=== PATIENT | male | born 1950 | race Caucasian/White ===

== ENCOUNTER 2017-02-06 19:48 | Inpatient (IN) | payer OTHER ==
[~2017-02-06] VITALS: Ht 170.2 cm; Wt 130.7 kg
[2017-02-06 20:30] LABS: BASOPHIL 0.1 % (0-2); EOSINOPHIL 0.1 % (0-7); HCT 45.5 % (42.0-52.0); HGB 14.1 g/dl (13.2-18.0); LYMPHOCYTE 5.6 % (15-48); MCH 29.2 pg (25.0-31.0); MCV 94.2 fL (78.0-100.0); MONOCYTE 5.5 % (0-12); NEUTROPHIL 88.7 % (41-80); PLT 363 K/uL (150-400); RBC 4.83 M/uL (4.70-6.00)
[2017-02-06 20:36] LABS: INR 1.3 (0.9-1.2); PROTHROMBIN TIME 15.7 SECONDS (11.7-14.0); PTT 34.2 SECONDS (23.2-31.4)
[2017-02-06 20:37] LABS: D-DIMER 1.22 ug/mLFEU (0.00-0.41)
[2017-02-06 20:40] LABS: ALBUMIN 3.2 g/dL (3.4-4.8); BILIRUBIN - TOTAL 1.2 mg/dL (0.1-1.0); GLOBULIN (CALCULATION) 3.6 g/dL (2.2-4.2); TOTAL PROTEIN 6.8 g/dL (6.4-8.3)
[2017-02-06 20:41] LABS: TROPONIN T < 0.010 ng/mL
[2017-02-06 20:48] LABS: PRO-BNP 2830 pg/mL (0-125)
[2017-02-06 21:13] LABS: BILIRUBIN NEGATIVE (NEGATIVE); BLOOD 2+ Ery/uL (NEGATIVE); CLARITY HAZY (CLEAR); COLOR ORANGE (YELLOW); GLUCOSE (U) NORMAL (NORMAL); KETONE (U) NEGATIVE (NEGATIVE); LEUKOCYTES NEGATIVE Leu/uL (NEGATIVE); NITRITE NEGATIVE (NEGATIVE); PROTEIN 2+ mg/dL (NEGATIVE); SPECIFIC GRAVITY >=1.030 (1.001-1.030)
[2017-02-06 21:19] LABS: BACTERIA 1+; SQUAMOUS EPITHELIAL CELLS RARE
[2017-02-06 21:29] LABS: LACTIC ACID 5.4 mmol/L (0.5-2.2)
--- NOTE | 2017-02-07 06:40 | NUR ---
AT BEDSIDE DRAWING BLOOD FROM R/SC CENTRAL LINE - PT PULLED A 3CM LOOP CENTRAL LINE FROM INSERT SITE. XRAY ORDERED IMMEDIATETLY. COVERED W/TEGADERM USING STERILE TECHNIQUE. REPORT TO CHRISTIE CASTRO W/UNDERSTANDING VERBALIZED.
--- NOTE | 2017-02-07 06:40 | NUR ---
AT BEDSIDE DRAWING BLOOD FROM R/SC CENTRAL LINE: PT PULLED A 3CM LOOP OF THE CENTRAL LINE FROM THE INSERTION SITE. XRAY ORDERED IMMEDIATELY. COVERED W/ TEGADERM USING STERILE TECHNIQUE. REPORT TO CHRISTIE CASTRO W/UNDERSTANDING VERBALIZED.
[2017-02-07 07:23] LABS: CKMB 1.66 ng/mL (0.97-4.94); TROPONIN T < 0.010 ng/mL
[2017-02-07 07:33] LABS: POTASSIUM 4.2 mmol/L (3.5-5.1)
[2017-02-07 12:16] LABS: CKMB 1.58 ng/mL (0.97-4.94); TROPONIN T < 0.010 ng/mL
[2017-02-08 04:15] LABS: BASOPHIL 0.1 % (0-2); EOSINOPHIL 0.9 % (0-7); HGB 13.1 g/dl (13.2-18.0); LYMPHOCYTE 9.6 % (15-48); MCHC 30.5 g/dL (32.0-36.0); MCV 95.3 fL (78.0-100.0); MONOCYTE 9.6 % (0-12); MPV 8.7 fL (6.0-9.5); NEUTROPHIL 79.8 % (41-80); PLT 323 K/uL (150-400); RBC 4.51 M/uL (4.70-6.00); WBC 12.1 K/uL (4.0-10.5)
[2017-02-08 04:37] LABS: ALBUMIN 3.1 g/dL (3.4-4.8); CREATININE 1.1 mg/dL (0.7-1.2); GLOBULIN (CALCULATION) 3.6 g/dL (2.2-4.2); MAGNESIUM 2.2 mg/dL (1.40-2.10); POTASSIUM 3.8 mmol/L (3.5-5.1); TOTAL PROTEIN 6.7 g/dL (6.4-8.3)
[2017-02-09 04:00] LABS: HCT 41.8 % (42.0-52.0); HGB 12.6 g/dl (13.2-18.0); MCHC 30.1 g/dL (32.0-36.0); MCV 96.3 fL (78.0-100.0); MPV 8.9 fL (6.0-9.5); RBC 4.34 M/uL (4.70-6.00); RDW 16.8 % (11.5-14.0); WBC 10.2 K/uL (4.0-10.5)
[2017-02-09 04:04] LABS: INR 1.3 (0.9-1.2); PROTHROMBIN TIME 15.7 SECONDS (11.7-14.0)
[2017-02-09 04:09] LABS: CREATININE 1.1 mg/dL (0.7-1.2); MAGNESIUM 2.13 mg/dL (1.40-2.10)
[2017-02-09] MEDS ORDERED: LASIX80 MG PO (12:04)
[2017-02-09] MEDS ORDERED: ALDACTONE25 MG PO (12:04)
[2017-02-09] MEDS ORDERED: POTASSIUM CHLO10 ME1 PO (12:05)
[2017-02-09] MEDS ORDERED: ZESTRIL5 MG PO (12:05)
[2017-02-09] MEDS ORDERED: DIGITEK250 MCG PO (12:05)
[2017-02-09] MEDS ORDERED: LIPITOR40 MG PO (12:06)
[2017-02-09] MEDS ORDERED: XARELTO20 MG PO (12:10)
== END 2017-02-09 14:25 | disposition home health service (06) | DRG 871 ==
LOC: FER 19:48 → FICU 02-07 02:20
PROVIDERS: Emergency Medicine; Internal Medicine Cardiovascular Disease; Internal Medicine Nephrology; ADMIT Internal Medicine
PROC: 02HV33Z Insertion of Infusion Device into Superior Vena Cava, Percutaneous Approach (ICD-10-PCS; principal; 2017-02-06)
DX: A41.9 Sepsis, unspecified organism (principal); J96.01 Acute respiratory failure with hypoxia; I50.43 Acute on chronic combined systolic (congestive) and diastolic (congestive) heart failure; I27.81 Cor pulmonale (chronic); E66.2 Morbid (severe) obesity with alveolar hypoventilation; Z68.42 Body mass index [BMI] 45.0-49.9, adult; L03.116 Cellulitis of left lower limb; L97.929 Non-pressure chronic ulcer of unspecified part of left lower leg with unspecified severity; L97.919 Non-pressure chronic ulcer of unspecified part of right lower leg with unspecified severity; R65.20 Severe sepsis without septic shock; I11.0 Hypertensive heart disease with heart failure; I48.91 Unspecified atrial fibrillation; I87.2 Venous insufficiency (chronic) (peripheral); I25.10 Atherosclerotic heart disease of native coronary artery without angina pectoris; F09 Unspecified mental disorder due to known physiological condition; E78.5 Hyperlipidemia, unspecified; Z87.891 Personal history of nicotine dependence; Z80.9 Family history of malignant neoplasm, unspecified; Z79.01 Long term (current) use of anticoagulants; Z79.899 Other long term (current) drug therapy; Z91.14 Patient's other noncompliance with medication regimen
CPT/HCPCS: 36415; 36600; 71010; 71275; 80048; 80053; 80162; 80202; 81001; 82550; 82553; 82803; 83605; 83735; 83880; 84145; 84443; 84484; 85025; 85379; 85610; 85730; 87040; 87070; 87077; 87088; 87186; 87205; 87804; 87899; 93005; 94760; 96374; 97116; 97161; 97165; 97535; J1160; J1940; J1956; J2543; J3370; Q9967

== ENCOUNTER 2021-02-03 16:33 | Inpatient (IN) | payer OTHER ==
[~2021-02-03] VITALS: Ht 170.2 cm; Wt 110.8 kg
[~2021-02-03 16:33] MED LIST: ALDACTONE25 MG PO; DIGITEK250 MCG PO; K-DUR20 MEQ PO; LASIX40 MG PO; LASIX80 MG PO; LIPITOR40 MG PO; MAG-OXIDE 400M400 MG PO; METFORMIN HCL500 MG PO; METOPROLOL SUC100 MG PO; METOPROLOL TAR100 MG PO; NEURONTIN300 MG PO; POTASSIUM CHLO10 ME1 PO; PREDNISONE 10MG10 MG PO; TOPROL XL 25MG25 MG PO; VITAMIN D50000 UNIT PO; XARELTO20 MG PO; ZAROXOLYN2.5 MG PO; ZESTRIL5 MG PO; ZOLOFT100 MG PO
[2021-02-03 19:36] LABS: BASOPHIL 0.2 % (0-2); EOSINOPHIL 0.3 % (0-7); HCT 46.6 % (42.0-52.0); HGB 14.6 g/dl (13.2-18.0); LYMPHOCYTE 6.4 % (15-48); MCH 30.9 pg (25.0-31.0); MCHC 31.3 g/dL (32.0-36.0); MCV 98.5 fL (78.0-100.0); MONOCYTE 7.7 % (0-12); MPV 9.2 fL (6.0-9.5); NEUTROPHIL 84.8 % (41-80); NRBC 0; PLT 253 K/uL (150-400); RBC 4.73 M/uL (4.70-6.00); RDW 20.9 % (11.5-14.0); WBC 12.5 K/uL (4.0-10.5)
[2021-02-03 19:48] LABS: ALBUMIN 2.4 g/dL (3.4-5.0); BILIRUBIN - TOTAL 1.4 mg/dL (0.2-1.0); BUN/CREAT RATIO (CALC) 22.1 RATIO; CREATININE 1.81 mg/dL (0.67-1.17); GLOBULIN (CALCULATION) 4.8 g/dL; POTASSIUM 2.7 mmol/L (3.5-5.1); TOTAL PROTEIN 7.2 g/dL (6.4-8.2)
[2021-02-04 02:02] LABS: BILIRUBIN NEGATIVE (NEGATIVE); BLOOD TRACE-LYSED Ery/uL (NEGATIVE); CLARITY CLEAR (CLEAR); COLOR YELLOW (YELLOW); GLUCOSE (U) NORMAL (NORMAL); LEUKOCYTES NEGATIVE Leu/uL (NEGATIVE); NITRITE NEGATIVE (NEGATIVE); PROTEIN NEGATIVE (NEGATIVE); SPECIFIC GRAVITY 1.015 (1.001-1.030); UROBILINOGEN 0.2 mg/dL (0.2-1.0)
[2021-02-04 02:10] LABS: URINARY RBC RARE
[2021-02-04 08:01] LABS: CORONAVIRUS 2019 SARS-COV-2 NEGATIVE (NEGATIVE); INFLUENZA A NAA NEGATIVE (NEGATIVE)
--- NOTE | 2021-02-04 09:22 | NUR ---
INCOMPLETE ADMISSTION DATABASE DUE TO PATIENT COGNITIVE IMPAIRMENTS AND MEMORY LOSS, PATIENT UNABLE TO ACCURATELY ANSWER ALL QUESTIONS. IT APPEARS PATIENT MAY HAVE SOME HOME HEALTH DUE TO COBAN WRAPS TO BLE. PATIENT STATES A NURSE COMES TO HIS HOME 3X WEEKLY BUT DOES NOT KNOW NAME OF HOME HEALTH. PATIENT DOES NOT KNOW MEDICATIONS. STATES HE LIVES WITH BROTHERS AND SISTERS ALTHOUGH REPORT FROM ER IS THAT PATIENT LIVES ALONE. THIS RN WILL ATTEMPT TO CALL PCP AND DETERMINE PATIENT MEDICATIONS AND CALL PHARMACY IF ABLE TO OBTAIN INFORMATION
--- NOTE | 2021-02-04 09:45 | NUR ---
THIS RN SPOKE WITH SHA AT [facility] WHO VERIFIED PATIENT IS CURRENT WITH THEIR HOME HEALTH SERVICE. ALSO INFORMED THAT PATIENT'S PCP IS DR MICHELLE FOSTER WITH [facility] CALLS AT [phone]. THIS RN REQUESTED PATIENT'S [facility] HOME HEALTH NURSE CALL TO DISCUSS PATIENT BASELINE FUNCTION, MEDICATIONS, SOCIAL HISTORY, ETC. RN ALSO PLACED CALL TO [facility] CALL[facility] TO REQUEST HISTORY AND PHYSICAL AND MEDICATION LIST. LEFT VOICEMAIL WITH MEDICAL RECORDS FOR INFORMATION TO BE FAXED
--- NOTE | 2021-02-04 10:40 | NUR ---
PATIENT'S SISTER CALLED, INFORMED RN THAT PATIENT DOES LIVE ALONE, HIS BROTHER HOMA HAS . SISTER IS TO BRING PATIENT'S MEDICATION BOTTLES FROM HOME SO RN CAN VERIFY HOME MEDICATIONS
[2021-02-04] MEDS ORDERED: LASIX40 MG PO ×2 (11:20→11:43)
[2021-02-04] MEDS ORDERED: MAG-OXIDE 400M400 MG PO ×2 (11:20→11:44)
[2021-02-04] MEDS ORDERED: K-DUR20 MEQ PO ×2 (11:21→11:41)
[2021-02-04] MEDS ORDERED: METOLAZONE 5MG T5 M1 PO ×2 (11:21→11:44)
[2021-02-04] MEDS ORDERED: LOPRESSOR50 MG PO (11:23)
[2021-02-04] MEDS ORDERED: NEURONTIN300 MG PO (11:40)
[2021-02-04] MEDS ORDERED: LIPITOR80 MG PO (11:42)
[2021-02-04] MEDS ORDERED: ZOLOFT100 MG PO (11:42)
[2021-02-04] MEDS ORDERED: METFORMIN HCL500 MG PO (11:42)
[2021-02-04] MEDS ORDERED: XARELTO20 MG PO (11:44)
[2021-02-04] MEDS ORDERED: LOPRESSOR100 MG PO (11:45)
--- NOTE | 2021-02-04 15:05 | NUR ---
02/04/21 Mr. Patricia lives alone, He has a quad cane, 3in1, and s. chair. His rolling walker broke causing a fall. He receives MOMs meals and homemaking from [facility]. [facility] is current and pt chose to continue services. [facility] was notified via [employer]. - Mr. Patricia becomes overwhelmed with too much information. Consequently, [facility] was requested to include a social worker aide to discuss service from [facility]. - A referral was made to [facility] for a rw. DC is anticipated for 02/[address] Mathew.
[2021-02-05 06:13] LABS: BASOPHIL 0.1 % (0-2); EOSINOPHIL 0.5 % (0-7); HCT 44.3 % (42.0-52.0); HGB 14.1 g/dl (13.2-18.0); LYMPHOCYTE 8.6 % (15-48); MCH 31.2 pg (25.0-31.0); MCHC 31.8 g/dL (32.0-36.0); MONOCYTE 7.3 % (0-12); MPV 8.5 fL (6.0-9.5); NEUTROPHIL 83.1 % (41-80); NRBC 0; PLT 241 K/uL (150-400); RBC 4.52 M/uL (4.70-6.00); RDW 20.5 % (11.5-14.0); WBC 12.9 K/uL (4.0-10.5)
[2021-02-05 06:32] LABS: BUN/CREAT RATIO (CALC) 25.2 RATIO; CREATININE 1.43 mg/dL (0.67-1.17); MAGNESIUM 1.9 mg/dL (1.8-2.4); POTASSIUM 2.5 mmol/L (3.5-5.1)
--- NOTE | 2021-02-05 15:24 | NUR ---
02/05/21 RW has been delivered to patient's room. - [facility] recommends for patient to consider SNF; patient declined.
--- NOTE | 2021-02-05 18:37 | NUR ---
TELEPHONE CALL RECEIVED FROM PATIENT'S CAREGIVER, CHRIS REQUESTING STAFF CALL HER UPON PATIENT DISCHARGE AND SHE WILL BE TRANSPORTING PATIENT HOME. CHRIS'S NUMBER IS [phone]
[2021-02-06 06:38] LABS: CREATININE 1.52 mg/dL (0.67-1.17); POTASSIUM 3.9 mmol/L (3.5-5.1)
--- NOTE | 2021-02-06 09:58 | NUR ---
02/06 [facility] was notified of discharge for today. A referral was made to [facility] for 02. The imporatance of using 02 at home was reiterated to Mr. Patricia. - Report given to MS CHRISTIE Johnson.
[2021-02-06] MEDS ORDERED: AZITHROMYCIN250 MG PO (13:24)
--- NOTE | 2021-02-10 08:34 | NUR ---
Patient's neighbor is Lashawn Stubbs, .
== END 2021-02-06 15:08 | disposition home health service (06) | DRG 291 ==
LOC: FER 16:33 → FMS 02-04 06:15
PROVIDERS: Emergency Medicine; Internal Medicine; ADMIT Internal Medicine
DX: I13.0 Hypertensive heart and chronic kidney disease with heart failure and stage 1 through stage 4 chronic kidney disease, or unspecified chronic kidney disease (principal); I50.33 Acute on chronic diastolic (congestive) heart failure; J18.9 Pneumonia, unspecified organism; S22.49XA Multiple fractures of ribs, unspecified side, initial encounter for closed fracture; S22.21XA Fracture of manubrium, initial encounter for closed fracture; I48.20 Chronic atrial fibrillation, unspecified; J44.0 Chronic obstructive pulmonary disease with (acute) lower respiratory infection; N18.30 Chronic kidney disease, stage 3 unspecified; G47.33 Obstructive sleep apnea (adult) (pediatric); Z20.822 Contact with and (suspected) exposure to COVID-19; I27.20 Pulmonary hypertension, unspecified; E11.22 Type 2 diabetes mellitus with diabetic chronic kidney disease; I69.398 Other sequelae of cerebral infarction; H54.7 Unspecified visual loss; E66.01 Morbid (severe) obesity due to excess calories; E78.00 Pure hypercholesterolemia, unspecified; F41.9 Anxiety disorder, unspecified; E87.6 Hypokalemia; S01.81XA Laceration without foreign body of other part of head, initial encounter; W19.XXXA Unspecified fall, initial encounter; I87.8 Other specified disorders of veins; Z87.891 Personal history of nicotine dependence; Z79.84 Long term (current) use of oral hypoglycemic drugs; Z79.01 Long term (current) use of anticoagulants; Z79.899 Other long term (current) drug therapy
CPT/HCPCS: 36415; 36600; 70450; 71045; 71250; 72125; 80048; 80053; 81001; 82803; 83605; 83735; 83880; 84484; 85025; 87040; 90471; 90714; 93005; 94640; 94664; 97116; 97162; 97166; 97530; 97530-GP; J0696; J2543; J2930; J7030; U0002

== ENCOUNTER 2021-02-07 17:38 | Day surgery (SDCO) | payer OTHER ==
[~2021-02-07 17:38] MED LIST changes: +AZITHROMYCIN250 MG PO; +LIPITOR80 MG PO; +LOPRESSOR100 MG PO; +LOPRESSOR50 MG PO; +METOLAZONE 5MG T5 M1 PO
[2021-02-07 18:17] LABS: BASOPHIL 0.4 % (0-2); EOSINOPHIL 1.3 % (0-7); HCT 48.3 % (42.0-52.0); HGB 15.2 g/dl (13.2-18.0); LYMPHOCYTE 15.3 % (15-48); MCHC 31.5 g/dL (32.0-36.0); MCV 98.4 fL (78.0-100.0); MONOCYTE 7.1 % (0-12); MPV 8.6 fL (6.0-9.5); NRBC 0; PLT 253 K/uL (150-400); RBC 4.91 M/uL (4.70-6.00); RDW 20.4 % (11.5-14.0); WBC 13.7 K/uL (4.0-10.5)
[2021-02-07 18:22] LABS: INR 2.31 (0.9-1.2); PROTHROMBIN TIME 24.2 SECONDS (11.4-13.6); PTT 45.3 SECONDS (22.2-34.7)
[2021-02-07 18:48] LABS: LACTIC ACID 2.9 mmol/L (0.4-1.9)
[2021-02-07 18:58] LABS: ALBUMIN 2.7 g/dL (3.4-5.0); BILIRUBIN - TOTAL 1.3 mg/dL (0.2-1.0); BUN/CREAT RATIO (CALC) 20.9 RATIO; CREATININE 1.91 mg/dL (0.67-1.17); GLOBULIN (CALCULATION) 5.1 g/dL; POTASSIUM 3.2 mmol/L (3.5-5.1); TOTAL PROTEIN 7.8 g/dL (6.4-8.2)
[2021-02-07 18:59] LABS: CKMB 0.6 ng/mL (0.0-3.6)
[2021-02-07 19:04] LABS: BILIRUBIN NEGATIVE (NEGATIVE); BLOOD TRACE-INTACT Ery/uL (NEGATIVE); CLARITY CLEAR (CLEAR); COLOR YELLOW (YELLOW); GLUCOSE (U) NORMAL (NORMAL); LEUKOCYTES NEGATIVE Leu/uL (NEGATIVE); NITRITE NEGATIVE (NEGATIVE); PROTEIN NEGATIVE (NEGATIVE); SPECIFIC GRAVITY <=1.005 (1.001-1.030); UROBILINOGEN 0.2 mg/dL (0.2-1.0); pH 6.5 (5.0-9.0)
[2021-02-07 19:17] LABS: URINARY RBC RARE
[2021-02-08 03:48] LABS: BASOPHIL 0.3 % (0-2); EOSINOPHIL 1.4 % (0-7); HCT 41.3 % (42.0-52.0); HGB 13.2 g/dl (13.2-18.0); LYMPHOCYTE 10.2 % (15-48); MCH 31.3 pg (25.0-31.0); MCV 97.9 fL (78.0-100.0); MONOCYTE 6.9 % (0-12); MPV 8.8 fL (6.0-9.5); NEUTROPHIL 80.5 % (41-80); NRBC 0; PLT 209 K/uL (150-400); RBC 4.22 M/uL (4.70-6.00); RDW 19.9 % (11.5-14.0); WBC 12.4 K/uL (4.0-10.5)
[2021-02-08 04:07] LABS: BUN/CREAT RATIO (CALC) 23.6 RATIO; CREATININE 1.57 mg/dL (0.67-1.17); POTASSIUM 3.1 mmol/L (3.5-5.1)
--- NOTE | 2021-02-08 11:01 | NUR ---
PT SENT HOME WITH [facility] AND HAS HOME O2. AND ROLLING WALKER; SPOKE TO CHRIS CAREGIVER AND SHE CONFIRMED HE LIVES ALONE AND SHE FEELS HE NEEDS REHAB. I DID SPEAK TO HIM AND HE REFUSES AT THIS TIME AND HE WANTS HOME WITH HOME HEALTH
[2021-02-09 03:57] LABS: BASOPHIL 0.5 % (0-2); EOSINOPHIL 2.3 % (0-7); HCT 42.3 % (42.0-52.0); HGB 13.5 g/dl (13.2-18.0); LYMPHOCYTE 17.7 % (15-48); MCH 31.3 pg (25.0-31.0); MCHC 31.9 g/dL (32.0-36.0); MCV 98.1 fL (78.0-100.0); MONOCYTE 7.4 % (0-12); MPV 8.9 fL (6.0-9.5); NEUTROPHIL 71.5 % (41-80); NRBC 0; PLT 233 K/uL (150-400); RBC 4.31 M/uL (4.70-6.00); RDW 20.1 % (11.5-14.0); WBC 11.9 K/uL (4.0-10.5)
[2021-02-09 04:21] LABS: BUN/CREAT RATIO (CALC) 24.4 RATIO; CREATININE 1.31 mg/dL (0.67-1.17); POTASSIUM 2.9 mmol/L (3.5-5.1)
[2021-02-09] MEDS ORDERED: SANTYL15 GM TOP (15:50)
--- NOTE | 2021-02-09 17:27 | NUR ---
TRIED TO CALL PATIENT'S FAMILY AND CAREGIVER TO AEROSPACE STRESS ENGINEER PATIENT. LEFT MESSAGES. ASKED PATIENT IF THERE WAS ANYONE ELSE THAT COULD COME PICK HIM UP, HE GAVE ME A LIST OF PEOPLE. CHRIS THE CAREGIVER CALLED BACK AND SAID THAT SHE WAS WAITING ON HIS SISTER TO COME HOME AND THAT SHE WOULD BE HOME LATER AND THAT SHE WOULD CALL ME BACK TO LET ME KNOW WHEN THEY WOULD BE HERE. I STILL HAVE NOT HEARD FROM ANY FAMILY
--- NOTE | 2021-02-10 10:19 | NUR ---
PATIENT WAS DISCHARGED HOME BEFORE HE COULD BE SEEN BY WOUND CARE.
== END 2021-02-09 18:40 | disposition home health service (06) ==
LOC: FER 17:38 → FTCU 22:07 → FMS 02-08 09:38
PROVIDERS: Emergency Medicine; Internal Medicine; Nurse Practitioner; ADMIT Internal Medicine
DX: E11.22 Type 2 diabetes mellitus with diabetic chronic kidney disease (principal); I13.0 Hypertensive heart and chronic kidney disease with heart failure and stage 1 through stage 4 chronic kidney disease, or unspecified chronic kidney disease; N18.9 Chronic kidney disease, unspecified; I50.30 Unspecified diastolic (congestive) heart failure; E78.5 Hyperlipidemia, unspecified; I48.20 Chronic atrial fibrillation, unspecified; J44.9 Chronic obstructive pulmonary disease, unspecified; G47.33 Obstructive sleep apnea (adult) (pediatric); E66.01 Morbid (severe) obesity due to excess calories; I87.8 Other specified disorders of veins; Z82.49 Family history of ischemic heart disease and other diseases of the circulatory system; Z79.84 Long term (current) use of oral hypoglycemic drugs; Z83.3 Family history of diabetes mellitus; Z79.899 Other long term (current) drug therapy
CPT/HCPCS: 36415; 36600; 70450; 71045; 80048; 80053; 81001; 82553; 82803; 82962; 83036; 83605; 83880; 84145; 84484; 85025; 85610; 85730; 87040; 93005; 96365; 96375; 97167; 97530; G0378; J1940; J3370; J7030; J7050

== ENCOUNTER 2021-02-27 17:24 | Day surgery (SDCO) | payer OTHER ==
[~2021-02-27] VITALS: Ht 170.2 cm; Wt 106.3 kg
[~2021-02-27 17:24] MED LIST changes: +SANTYL15 GM TOP
[2021-02-27 18:38] LABS: BASOPHIL 0.4 % (0-2); EOSINOPHIL 1.4 % (0-7); HCT 44.2 % (42.0-52.0); HGB 14.5 g/dl (13.2-18.0); LYMPHOCYTE 22.4 % (15-48); MCH 31.9 pg (25.0-31.0); MCHC 32.8 g/dL (32.0-36.0); MCV 97.4 fL (78.0-100.0); MONOCYTE 9.4 % (0-12); MPV 8.9 fL (6.0-9.5); NRBC 0; PLT 269 K/uL (150-400); RBC 4.54 M/uL (4.70-6.00); RDW 19.7 % (11.5-14.0)
[2021-02-27 18:51] LABS: INR 1.47 (0.9-1.2); PROTHROMBIN TIME 16.9 SECONDS (11.4-13.6); PTT 34.8 SECONDS (22.2-34.7)
[2021-02-27 18:56] LABS: ALBUMIN 2.6 g/dL (3.4-5.0); BILIRUBIN - TOTAL 0.9 mg/dL (0.2-1.0); BUN/CREAT RATIO (CALC) 17.7 RATIO; CREATININE 1.86 mg/dL (0.67-1.17); GLOBULIN (CALCULATION) 5.3 g/dL; TOTAL PROTEIN 7.9 g/dL (6.4-8.2)
[2021-02-27 19:14] LABS: CKMB <0.5 ng/mL (0.0-3.6); PRO-BNP 10141 pg/mL (<125)
[2021-02-27 19:15] LABS: LACTIC ACID 2.4 mmol/L (0.4-1.9)
[2021-02-27 20:10] LABS: BILIRUBIN NEGATIVE (NEGATIVE); BLOOD NEGATIVE Ery/uL (NEGATIVE); CLARITY CLEAR (CLEAR); COLOR YELLOW (YELLOW); GLUCOSE (U) NORMAL (NORMAL); LEUKOCYTES TRACE Leu/uL (NEGATIVE); NITRITE NEGATIVE (NEGATIVE); PROTEIN NEGATIVE (NEGATIVE); UROBILINOGEN 0.2 mg/dL (0.2-1.0)
[2021-02-27 20:14] LABS: BACTERIA TRACE; URINARY RBC RARE; URINARY WBC RARE
[2021-02-27 21:56] LABS: MAGNESIUM 1.8 mg/dL (1.8-2.4); PHOSPHORUS 3.3 mg/dL (2.6-4.7)
[2021-02-28] MEDS ORDERED: SERTRALINE HCL100 MG PO (00:29)
[2021-02-28] MEDS ORDERED: METFORMIN HCL500 MG PO (00:29)
[2021-02-28] MEDS ORDERED: LASIX40 MG PO (00:30)
[2021-02-28] MEDS ORDERED: MAG-OXIDE 400M400 MG PO (00:30)
[2021-02-28] MEDS ORDERED: LIPITOR40 MG PO (00:31)
[2021-02-28] MEDS ORDERED: XARELTO10 MG PO (00:31)
[2021-02-28] MEDS ORDERED: NEURONTIN300 MG PO (00:32)
[2021-02-28] MEDS ORDERED: LOPRESSOR50 MG PO (00:32)
[2021-02-28] MEDS ORDERED: K-DUR20 MEQ PO (00:33)
[2021-02-28 06:56] LABS: BASOPHIL 0.4 % (0-2); HCT 42.8 % (42.0-52.0); HGB 13.7 g/dl (13.2-18.0); LYMPHOCYTE 16.9 % (15-48); MCH 31.8 pg (25.0-31.0); MCV 99.3 fL (78.0-100.0); MONOCYTE 9.5 % (0-12); MPV 9.1 fL (6.0-9.5); NEUTROPHIL 70.8 % (41-80); NRBC 0; PLT 203 K/uL (150-400); RBC 4.31 M/uL (4.70-6.00); RDW 19.6 % (11.5-14.0); WBC 7.1 K/uL (4.0-10.5)
[2021-02-28 07:31] LABS: ALBUMIN 2.3 g/dL (3.4-5.0); BILIRUBIN - TOTAL 0.9 mg/dL (0.2-1.0); BUN/CREAT RATIO (CALC) 17.6 RATIO; CREATININE 1.65 mg/dL (0.67-1.17); GLOBULIN (CALCULATION) 3.9 g/dL; POTASSIUM 3.1 mmol/L (3.5-5.1); TOTAL PROTEIN 6.2 g/dL (6.4-8.2)
[2021-03-01 05:59] LABS: BASOPHIL 0.4 % (0-2); EOSINOPHIL 2.7 % (0-7); HCT 44.8 % (42.0-52.0); HGB 14.4 g/dl (13.2-18.0); LYMPHOCYTE 19.4 % (15-48); MCH 31.9 pg (25.0-31.0); MCHC 32.1 g/dL (32.0-36.0); MCV 99.3 fL (78.0-100.0); MONOCYTE 8.3 % (0-12); MPV 8.8 fL (6.0-9.5); NEUTROPHIL 68.8 % (41-80); NRBC 0; PLT 204 K/uL (150-400); RBC 4.51 M/uL (4.70-6.00); RDW 19.7 % (11.5-14.0); WBC 7.7 K/uL (4.0-10.5)
[2021-03-01 06:26] LABS: BUN/CREAT RATIO (CALC) 16.2 RATIO; CREATININE 1.48 mg/dL (0.67-1.17); MAGNESIUM 1.6 mg/dL (1.8-2.4); POTASSIUM 2.8 mmol/L (3.5-5.1)
[2021-03-01 06:40] LABS: PRO-BNP 8519 pg/mL (<125)
[2021-03-02 04:20] LABS: BASOPHIL 0.4 % (0-2); EOSINOPHIL 3.3 % (0-7); HCT 43.9 % (42.0-52.0); HGB 14.2 g/dl (13.2-18.0); MCH 32.1 pg (25.0-31.0); MCHC 32.3 g/dL (32.0-36.0); MCV 99.3 fL (78.0-100.0); MONOCYTE 9.3 % (0-12); MPV 8.8 fL (6.0-9.5); NEUTROPHIL 67.7 % (41-80); NRBC 0; PLT 199 K/uL (150-400); RBC 4.42 M/uL (4.70-6.00); RDW 19.9 % (11.5-14.0); WBC 7.3 K/uL (4.0-10.5)
[2021-03-02 04:41] LABS: BUN/CREAT RATIO (CALC) 15.1 RATIO; CREATININE 1.66 mg/dL (0.67-1.17); POTASSIUM 3.2 mmol/L (3.5-5.1)
[2021-03-02 04:44] LABS: MAGNESIUM 2.2 mg/dL (1.8-2.4)
[2021-03-03 06:20] LABS: BASOPHIL 0.3 % (0-2); EOSINOPHIL 3.1 % (0-7); HGB 14.8 g/dl (13.2-18.0); LYMPHOCYTE 22.9 % (15-48); MCH 31.8 pg (25.0-31.0); MCHC 32.2 g/dL (32.0-36.0); MCV 98.7 fL (78.0-100.0); MPV 8.5 fL (6.0-9.5); NEUTROPHIL 63.4 % (41-80); NRBC 0; PLT 173 K/uL (150-400); RBC 4.66 M/uL (4.70-6.00); RDW 19.7 % (11.5-14.0); WBC 6.4 K/uL (4.0-10.5)
[2021-03-03 06:39] LABS: BUN/CREAT RATIO (CALC) 14.8 RATIO; CREATININE 1.76 mg/dL (0.67-1.17); MAGNESIUM 1.7 mg/dL (1.8-2.4); POTASSIUM 3.1 mmol/L (3.5-5.1)
[2021-03-03 06:41] LABS: PRO-BNP 4457 pg/mL (<125)
[2021-03-03] MEDS ORDERED: BUMEX1 MG PO (11:42)
[2021-03-03] MEDS ORDERED: NEURONTIN300 MG PO (13:54)
== END 2021-03-03 16:13 ==
LOC: FER 17:24 → FMS 22:22
PROVIDERS: Emergency Medicine; Nurse Practitioner; ADMIT Internal Medicine
DX: I13.0 Hypertensive heart and chronic kidney disease with heart failure and stage 1 through stage 4 chronic kidney disease, or unspecified chronic kidney disease (principal); E11.22 Type 2 diabetes mellitus with diabetic chronic kidney disease; N18.30 Chronic kidney disease, stage 3 unspecified; I50.33 Acute on chronic diastolic (congestive) heart failure; N17.9 Acute kidney failure, unspecified; I95.9 Hypotension, unspecified; I48.20 Chronic atrial fibrillation, unspecified; Z20.822 Contact with and (suspected) exposure to COVID-19; K62.89 Other specified diseases of anus and rectum; E86.0 Dehydration; E87.1 Hypo-osmolality and hyponatremia; E87.6 Hypokalemia; E83.42 Hypomagnesemia; R77.8 Other specified abnormalities of plasma proteins; E78.5 Hyperlipidemia, unspecified; I35.8 Other nonrheumatic aortic valve disorders; I07.1 Rheumatic tricuspid insufficiency; I27.20 Pulmonary hypertension, unspecified; K62.5 Hemorrhage of anus and rectum; I25.10 Atherosclerotic heart disease of native coronary artery without angina pectoris; J44.9 Chronic obstructive pulmonary disease, unspecified; G47.33 Obstructive sleep apnea (adult) (pediatric); I69.398 Other sequelae of cerebral infarction; H54.62 Unqualified visual loss, left eye, normal vision right eye; I87.8 Other specified disorders of veins; J96.90 Respiratory failure, unspecified, unspecified whether with hypoxia or hypercapnia; E11.622 Type 2 diabetes mellitus with other skin ulcer; L97.929 Non-pressure chronic ulcer of unspecified part of left lower leg with unspecified severity; L98.419 Non-pressure chronic ulcer of buttock with unspecified severity; E66.01 Morbid (severe) obesity due to excess calories; Z87.891 Personal history of nicotine dependence; Z79.01 Long term (current) use of anticoagulants; Z79.84 Long term (current) use of oral hypoglycemic drugs; Z79.899 Other long term (current) drug therapy
CPT/HCPCS: 36415; 71045; 80048; 80053; 81001; 82553; 82962; 83605; 83735; 83880; 84100; 84145; 84484; 85025; 85610; 85730; 87040; 93005; 94760; 94762; 96365; 97110; 97116; 97162; 97166; 97530; 97530-GP; 97535; C9113; G0378; J1200; J2543; J3475; J3480; J7030; J7040; U0002

== ENCOUNTER 2021-03-12 17:44 | Inpatient (IN) | payer OTHER ==
[~2021-03-12 17:44] MED LIST changes: +BUMEX1 MG PO; +SERTRALINE HCL100 MG PO; +XARELTO10 MG PO
[2021-03-12 19:51] LABS: BASOPHIL 0.3 % (0-2); EOSINOPHIL 0.7 % (0-7); HCT 43.1 % (42.0-52.0); HGB 14.2 g/dl (13.2-18.0); LYMPHOCYTE 10.2 % (15-48); MCH 32.8 pg (25.0-31.0); MCHC 32.9 g/dL (32.0-36.0); MCV 99.5 fL (78.0-100.0); MONOCYTE 8.9 % (0-12); MPV 9.1 fL (6.0-9.5); NEUTROPHIL 79.3 % (41-80); NRBC 0; PLT 249 K/uL (150-400); RBC 4.33 M/uL (4.70-6.00); RDW 19.4 % (11.5-14.0); WBC 10.8 K/uL (4.0-10.5)
[2021-03-12 20:01] LABS: ALBUMIN 2.6 g/dL (3.4-5.0); BUN/CREAT RATIO (CALC) 19.2 RATIO; CREATININE 2.14 mg/dL (0.67-1.17); GLOBULIN (CALCULATION) 4.3 g/dL; POTASSIUM 4.8 mmol/L (3.5-5.1); TOTAL PROTEIN 6.9 g/dL (6.4-8.2)
[2021-03-12 20:06] LABS: LACTIC ACID 2.5 mmol/L (0.4-1.9)
[2021-03-12 20:10] LABS: PRO-BNP 5566 pg/mL (<125)
[2021-03-12 21:03] LABS: CORONAVIRUS 2019 SARS-COV-2 NEGATIVE (NEGATIVE); INFLUENZA A NAA NEGATIVE (NEGATIVE)
[2021-03-12 21:16] LABS: BILIRUBIN NEGATIVE (NEGATIVE); BLOOD NEGATIVE Ery/uL (NEGATIVE); CLARITY CLEAR (CLEAR); COLOR YELLOW (YELLOW); GLUCOSE (U) NORMAL (NORMAL); LEUKOCYTES NEGATIVE Leu/uL (NEGATIVE); NITRITE NEGATIVE (NEGATIVE); PROTEIN NEGATIVE (NEGATIVE); SPECIFIC GRAVITY 1.015 (1.001-1.030); UROBILINOGEN 0.2 mg/dL (0.2-1.0); pH 5.5 (5.0-9.0)
[2021-03-12 23:21] LABS: AMPHETAMINES NEGATIVE (NEGATIVE); BARBITURATES NEGATIVE (NEGATIVE); ECSTASY (MDMA) NEGATIVE (NEGATIVE); MARIJUANA (THC) NEGATIVE (NEGATIVE); METHADONE NEGATIVE (NEGATIVE); OPIATES NEGATIVE (NEGATIVE); OXYCODONE NEGATIVE (NEGATIVE)
[2021-03-13 06:06] LABS: BASOPHIL 0.2 % (0-2); EOSINOPHIL 1.8 % (0-7); HGB 12.9 g/dl (13.2-18.0); LYMPHOCYTE 15.1 % (15-48); MCH 32.5 pg (25.0-31.0); MCHC 32.3 g/dL (32.0-36.0); MCV 100.8 fL (78.0-100.0); MONOCYTE 8.1 % (0-12); MPV 9.1 fL (6.0-9.5); NEUTROPHIL 74.3 % (41-80); NRBC 0; PLT 204 K/uL (150-400); RBC 3.97 M/uL (4.70-6.00); RDW 19.2 % (11.5-14.0); WBC 8.7 K/uL (4.0-10.5)
[2021-03-13 06:37] LABS: ALBUMIN 2.1 g/dL (3.4-5.0); BILIRUBIN - TOTAL 0.6 mg/dL (0.2-1.0); BUN/CREAT RATIO (CALC) 21.8 RATIO; CREATININE 1.65 mg/dL (0.67-1.17); GLOBULIN (CALCULATION) 4.3 g/dL; POTASSIUM 3.5 mmol/L (3.5-5.1); TOTAL PROTEIN 6.4 g/dL (6.4-8.2)
[2021-03-14 06:10] LABS: BASOPHIL 0.3 % (0-2); EOSINOPHIL 2.7 % (0-7); HCT 39.7 % (42.0-52.0); HGB 12.6 g/dl (13.2-18.0); LYMPHOCYTE 17.3 % (15-48); MCH 32.6 pg (25.0-31.0); MCHC 31.7 g/dL (32.0-36.0); MCV 102.6 fL (78.0-100.0); MONOCYTE 7.9 % (0-12); MPV 8.7 fL (6.0-9.5); NEUTROPHIL 71.4 % (41-80); NRBC 0; PLT 195 K/uL (150-400); RBC 3.87 M/uL (4.70-6.00); RDW 19.3 % (11.5-14.0); WBC 7.1 K/uL (4.0-10.5)
[2021-03-14 06:29] LABS: BILIRUBIN - TOTAL 0.7 mg/dL (0.2-1.0); BUN/CREAT RATIO (CALC) 19.8 RATIO; CREATININE 1.21 mg/dL (0.67-1.17); GLOBULIN (CALCULATION) 4.2 g/dL; MAGNESIUM 1.6 mg/dL (1.8-2.4); POTASSIUM 3.3 mmol/L (3.5-5.1); TOTAL PROTEIN 6.2 g/dL (6.4-8.2)
--- NOTE | 2021-03-14 13:10 | NUR ---
PT. HAS A HOSPITAL BED, WC, RW, 01/20. HH WILL BE [facility]. PT. ALSO HAS A NURSE FROM [facility] WHO WILL BE MAKING HOME VISITS. [phone]. PLEASE NOTIFY [facility] IF PT. D/C OVER THE WEEKEND [phone]. CALL CHRIS FOR TRANSPORTATION AT [phone]
[2021-03-14] MEDS ORDERED: SILVASORB44.4 ML TOP (15:51)
[2021-03-14] MEDS ORDERED: MICONAZORB AF71 GM TOP (15:51)
--- NOTE | 2021-03-14 18:31 | NUR ---
1800 GIRLFRIEND HAS NOT ARRIVED YET, CALLED TO SEE WHY. REPORTS THAT SHE IS UNABLE TO FIND HELP TO GET HIM HOME. TABLE GAMES FLOOR SUPERVISOR NOTIFIED OF THIS. 1630 DISCHARGE INSTRUCTIONS HAVE BEEN GIVEN AND THE GIRLFRIEND (CHRIS) WAS NOTIFED.
--- NOTE | 2021-03-14 18:56 | NUR ---
REPORT WAS GIVEN TO BECKY VARELA AND HE WILL BE SENT HOME IN A TAXI AND THE GIRLFRIEND WILL BE WAITING AT HOME TO HELP GET HIM IN THE WHEELCHAIR AND INTO THE HOUSE.
--- NOTE | 2021-03-14 19:49 | NUR ---
1925-PT DISHARGED HOME PER TAXI,ASSISTED X2 TO STAFF MEMBERS TO TAXI,LEFT FLOOR VIA W/C WITH ALL PERSONAL ITEMS,IN STABLE CONDITION,NO S/S OF DISTRESS OR DISCOMFORT
--- NOTE | 2021-03-17 09:09 | NUR ---
RECEIVED A CALL FROM ELSY ZAPATA, BILINGUAL INTERPRETER WITH [employer]. SHE IS AWARE OF PATIENT AND IF HE HAS A READMISSION WOULD LIKE A PHONE CALL. [phone].
== END 2021-03-14 19:25 | disposition home health service (06) | DRG 683 ==
LOC: FER 17:44 → FTCU 23:10
PROVIDERS: Emergency Medicine Emergency Medical Services; Internal Medicine; Nurse Practitioner; ADMIT Allergy & Immunology Allergy
DX: N17.9 Acute kidney failure, unspecified (principal); S22.079A Unspecified fracture of T9-T10 vertebra, initial encounter for closed fracture; R65.10 Systemic inflammatory response syndrome (SIRS) of non-infectious origin without acute organ dysfunction; L97.929 Non-pressure chronic ulcer of unspecified part of left lower leg with unspecified severity; E87.2 Acidosis; I50.32 Chronic diastolic (congestive) heart failure; I13.0 Hypertensive heart and chronic kidney disease with heart failure and stage 1 through stage 4 chronic kidney disease, or unspecified chronic kidney disease; I87.8 Other specified disorders of veins; I83.029 Varicose veins of left lower extremity with ulcer of unspecified site; E87.6 Hypokalemia; Z20.822 Contact with and (suspected) exposure to COVID-19; N18.9 Chronic kidney disease, unspecified; E83.42 Hypomagnesemia; I95.9 Hypotension, unspecified; H54.8 Legal blindness, as defined in USA; E86.0 Dehydration; J44.9 Chronic obstructive pulmonary disease, unspecified; E11.22 Type 2 diabetes mellitus with diabetic chronic kidney disease; E78.00 Pure hypercholesterolemia, unspecified; I25.10 Atherosclerotic heart disease of native coronary artery without angina pectoris; I48.91 Unspecified atrial fibrillation; G47.33 Obstructive sleep apnea (adult) (pediatric); W19.XXXA Unspecified fall, initial encounter; I69.398 Other sequelae of cerebral infarction; Z91.81 History of falling; Z87.891 Personal history of nicotine dependence; Z79.01 Long term (current) use of anticoagulants; Z79.84 Long term (current) use of oral hypoglycemic drugs; Z79.899 Other long term (current) drug therapy
CPT/HCPCS: 36415; 36600; 70450; 70486; 71250; 72125; 72128; 72131; 76705; 80053; 80305; 81003; 82550; 82803; 82962; 83036; 83605; 83735; 83880; 84145; 84439; 84443; 84484; 85025; 87040; 93005; 94760; 97110; 97116; 97162; 97166; 97530-GP; 97535; G0480; J0696; J3475; J7030; U0002

== ENCOUNTER 2021-03-19 15:39 | Emergency (ER) | payer OTHER ==
[~2021-03-19 15:39] MED LIST changes: +MICONAZORB AF71 GM TOP; +SILVASORB44.4 ML TOP
[2021-03-19 17:03] LABS: BASOPHIL 0.3 % (0-2); EOSINOPHIL 2.6 % (0-7); HCT 41.1 % (42.0-52.0); HGB 13.3 g/dl (13.2-18.0); LYMPHOCYTE 22.9 % (15-48); MCH 32.8 pg (25.0-31.0); MCHC 32.4 g/dL (32.0-36.0); MCV 101.2 fL (78.0-100.0); MONOCYTE 7.3 % (0-12); MPV 8.9 fL (6.0-9.5); NEUTROPHIL 66.4 % (41-80); NRBC 0; PLT 235 K/uL (150-400); RBC 4.06 M/uL (4.70-6.00); RDW 19.5 % (11.5-14.0); WBC 9.3 K/uL (4.0-10.5)
[2021-03-19 17:19] LABS: ALBUMIN 2.2 g/dL (3.4-5.0); BILIRUBIN - TOTAL 0.6 mg/dL (0.2-1.0); BUN/CREAT RATIO (CALC) 9.5 RATIO; CREATININE 1.26 mg/dL (0.67-1.17); GLOBULIN (CALCULATION) 4.8 g/dL; POTASSIUM 3.9 mmol/L (3.5-5.1)
[2021-03-19 18:04] LABS: INR 1.29 (0.9-1.2); PROTHROMBIN TIME 15.3 SECONDS (11.4-13.6)
[2021-03-19 18:05] LABS: PTT 40.5 SECONDS (22.2-34.7)
[2021-03-19 18:20] LABS: PRO-BNP 6351 pg/mL (<125)
== END 2021-03-19 21:34 | disposition home or self-care (01) ==
LOC: FER 15:39
PROVIDERS: Emergency Medicine
DX: I11.0 Hypertensive heart disease with heart failure (principal); I50.9 Heart failure, unspecified; E11.9 Type 2 diabetes mellitus without complications; I87.2 Venous insufficiency (chronic) (peripheral); J44.9 Chronic obstructive pulmonary disease, unspecified; R19.7 Diarrhea, unspecified
CPT/HCPCS: 36415; 74022; 80053; 83880; 84484; 85025; 85610; 85730; 93005

== ENCOUNTER 2021-05-07 11:17 | Inpatient (IN) | payer OTHER ==
[~2021-05-07] VITALS: Ht 167.6 cm; Wt 98.2 kg
[2021-05-07 12:11] LABS: BASOPHIL 0.3 % (0-2); EOSINOPHIL 0.1 % (0-7); HCT 39.9 % (42.0-52.0); HGB 13.2 g/dl (13.2-18.0); LYMPHOCYTE 10.8 % (15-48); MCH 33.8 pg (25.0-31.0); MCHC 33.1 g/dL (32.0-36.0); MCV 102.3 fL (78.0-100.0); MONOCYTE 6.9 % (0-12); NEUTROPHIL 81.3 % (41-80); NRBC 0; PLT 206 K/uL (150-400); RDW 18.9 % (11.5-14.0); WBC 10.8 K/uL (4.0-10.5)
[2021-05-07 12:25] LABS: BILIRUBIN NEGATIVE (NEGATIVE); BLOOD 2+ Ery/uL (NEGATIVE); CLARITY CLEAR (CLEAR); COLOR YELLOW (YELLOW); GLUCOSE (U) NORMAL (NORMAL); LEUKOCYTES NEGATIVE Leu/uL (NEGATIVE); NITRITE NEGATIVE (NEGATIVE); PROTEIN NEGATIVE (NEGATIVE); UROBILINOGEN 0.2 mg/dL (0.2-1.0); pH 5.5 (5.0-9.0)
[2021-05-07 12:36] LABS: AMORPHOUS URATES CRYSTALS TRACE; BACTERIA TRACE; URINARY WBC RARE
[2021-05-07 12:41] LABS: ALBUMIN 2.7 g/dL (3.4-5.0); BILIRUBIN - TOTAL 1.3 mg/dL (0.2-1.0); CREATININE 1.77 mg/dL (0.67-1.17); GLOBULIN (CALCULATION) 4.7 g/dL; LACTIC ACID 3.6 mmol/L (0.4-1.9); POTASSIUM 4.8 mmol/L (3.5-5.1); TOTAL PROTEIN 7.4 g/dL (6.4-8.2)
[2021-05-07 13:53] LABS: FLU B NEGATIVE B (NEGATIVE B)
[2021-05-07] MEDS ORDERED: XARELTO10 MG PO (15:40)
[2021-05-08 06:18] LABS: BASOPHIL 0.4 % (0-2); EOSINOPHIL 1.9 % (0-7); HCT 38.7 % (42.0-52.0); HGB 12.9 g/dl (13.2-18.0); MCH 34.4 pg (25.0-31.0); MCHC 33.3 g/dL (32.0-36.0); MCV 103.2 fL (78.0-100.0); MONOCYTE 7.2 % (0-12); MPV 9.3 fL (6.0-9.5); NRBC 0; PLT 205 K/uL (150-400); RBC 3.75 M/uL (4.70-6.00); WBC 9.4 K/uL (4.0-10.5)
[2021-05-08 07:07] LABS: CREATININE 1.58 mg/dL (0.67-1.17); POTASSIUM 3.9 mmol/L (3.5-5.1)
[2021-05-08 07:24] LABS: PRO-BNP 10518 pg/mL (<125)
--- NOTE | 2021-05-08 12:27 | NUR ---
AN APS REFERRAL WAS MADE DUE TO MR. LOPES'S PHYSICAL STATE OF BEING UNSAFE AT HOME DUE TO HIM BEING LEGALLY BLIND AND HAVING MULTIPLE FALLS. I INTERVIEWED PT REGARDING HIS CURRENT SITUATION, HE CONTINUES TO REFUSE TO GO TO A FACILITY. HE STATES THAT HIS FRIEND OFFERS SOME ASSISTANCE. WEB REFERRAL # IS [id number].
[2021-05-09 06:15] LABS: BASOPHIL 0.4 % (0-2); HCT 40.3 % (42.0-52.0); HGB 13.2 g/dl (13.2-18.0); LYMPHOCYTE 16.4 % (15-48); MCH 33.8 pg (25.0-31.0); MCHC 32.8 g/dL (32.0-36.0); MCV 103.3 fL (78.0-100.0); MONOCYTE 7.6 % (0-12); NEUTROPHIL 73.1 % (41-80); NRBC 0; PLT 221 K/uL (150-400); RDW 18.9 % (11.5-14.0); WBC 10.1 K/uL (4.0-10.5)
[2021-05-09 06:58] LABS: PRO-BNP 8255 pg/mL (<125)
[2021-05-09 07:06] LABS: CREATININE 1.8 mg/dL (0.67-1.17); POTASSIUM 3.4 mmol/L (3.5-5.1)
[2021-05-09 07:07] LABS: ALBUMIN 2.4 g/dL (3.4-5.0); BILIRUBIN - TOTAL 0.9 mg/dL (0.2-1.0); GLOBULIN (CALCULATION) 4.6 g/dL; MAGNESIUM 1.6 mg/dL (1.8-2.4); PHOSPHORUS 3.2 mg/dL (2.6-4.7)
--- NOTE | 2021-05-09 11:28 | NUR ---
MET WITH PT. AGAIN, THIS DATE. HE IS STILL REFUSING TO GO TO A LONGTERM FACILITY. APS DID NOT ACCEPT THE REFERRAL.
--- NOTE | 2021-05-09 14:51 | NUR ---
PT. IS CURRENT WITH [facility]. NOTIFY [facility] IF PT. D/C HOME OVER THE WEEKEND.
[2021-05-10 04:29] LABS: BASOPHIL 0.5 % (0-2); EOSINOPHIL 2.1 % (0-7); HCT 41.4 % (42.0-52.0); HGB 13.7 g/dl (13.2-18.0); LYMPHOCYTE 21.8 % (15-48); MCH 33.6 pg (25.0-31.0); MCHC 33.1 g/dL (32.0-36.0); MCV 101.5 fL (78.0-100.0); MONOCYTE 7.1 % (0-12); MPV 8.9 fL (6.0-9.5); NRBC 0; PLT 210 K/uL (150-400); RBC 4.08 M/uL (4.70-6.00); RDW 18.7 % (11.5-14.0); WBC 9.6 K/uL (4.0-10.5)
[2021-05-10 04:46] LABS: BUN/CREAT RATIO (CALC) 10.2 RATIO; CREATININE 1.27 mg/dL (0.67-1.17); POTASSIUM 3.6 mmol/L (3.5-5.1)
[2021-05-11 04:38] LABS: BASOPHIL 0.3 % (0-2); EOSINOPHIL 2.7 % (0-7); HGB 13.1 g/dl (13.2-18.0); MCH 33.9 pg (25.0-31.0); MCHC 32.8 g/dL (32.0-36.0); MCV 103.6 fL (78.0-100.0); MONOCYTE 7.2 % (0-12); MPV 8.5 fL (6.0-9.5); NEUTROPHIL 66.5 % (41-80); NRBC 0; PLT 198 K/uL (150-400); RBC 3.86 M/uL (4.70-6.00); WBC 8.6 K/uL (4.0-10.5)
[2021-05-11 05:05] LABS: ALBUMIN 2.3 g/dL (3.4-5.0); BILIRUBIN - TOTAL 0.7 mg/dL (0.2-1.0); BUN/CREAT RATIO (CALC) 10.1 RATIO; CREATININE 1.19 mg/dL (0.67-1.17); GLOBULIN (CALCULATION) 4.4 g/dL; MAGNESIUM 1.4 mg/dL (1.8-2.4); PHOSPHORUS 2.7 mg/dL (2.6-4.7); POTASSIUM 3.7 mmol/L (3.5-5.1); TOTAL PROTEIN 6.7 g/dL (6.4-8.2)
--- NOTE | 2021-05-12 13:29 | NUR ---
05/12/21 Patient's care needs and recommendations for SNF were again discussed with Mr. Patricia. He continues to decline SNF placement. - [facility] was notified of discharge. - A referral was made to [facility] to increase 02 from 3L to 4L per Dr. Mathew's order.
[2021-05-12] MEDS ORDERED: CEFDINIR300 MG PO (15:50)
--- NOTE | 2021-05-13 08:44 | NUR ---
AMANDA PEREZ. NEIGHBOR PHONE NUMBER IS [phone].
== END 2021-05-12 20:00 | disposition home health service (06) | DRG 871 ==
LOC: FER 11:17 → FTCU 13:01
PROVIDERS: Emergency Medicine; Nurse Practitioner; ADMIT Allergy & Immunology Allergy
DX: A41.9 Sepsis, unspecified organism (principal); J18.9 Pneumonia, unspecified organism; R65.21 Severe sepsis with septic shock; J96.91 Respiratory failure, unspecified with hypoxia; I50.33 Acute on chronic diastolic (congestive) heart failure; I48.20 Chronic atrial fibrillation, unspecified; M62.82 Rhabdomyolysis; Y95 Nosocomial condition; I11.0 Hypertensive heart disease with heart failure; E11.9 Type 2 diabetes mellitus without complications; E78.5 Hyperlipidemia, unspecified; H54.8 Legal blindness, as defined in USA; I25.10 Atherosclerotic heart disease of native coronary artery without angina pectoris; Z20.822 Contact with and (suspected) exposure to COVID-19; Z66 Do not resuscitate; R19.7 Diarrhea, unspecified; I87.8 Other specified disorders of veins; R53.1 Weakness; J44.9 Chronic obstructive pulmonary disease, unspecified; G47.33 Obstructive sleep apnea (adult) (pediatric); I69.398 Other sequelae of cerebral infarction; Z80.8 Family history of malignant neoplasm of other organs or systems; Z83.3 Family history of diabetes mellitus; Z82.49 Family history of ischemic heart disease and other diseases of the circulatory system; Z82.3 Family history of stroke; Z87.891 Personal history of nicotine dependence; Z79.899 Other long term (current) drug therapy; Z79.01 Long term (current) use of anticoagulants; Z98.61 Coronary angioplasty status; Z91.81 History of falling
CPT/HCPCS: 36415; 36600; 71045; 80048; 80053; 81001; 82150; 82803; 82962; 83605; 83735; 83880; 84100; 84145; 84484; 85025; 87040; 87088; 87449; 87804; 87899; 93005; 94667; 94668; 94760; 94762; 97110; 97162; 97166; 97530-GP; 97535; J2020; J2543; J3475; J7030; J7120; U0002

== ENCOUNTER 2021-05-15 13:44 | Inpatient (IN) | payer OTHER ==
[~2021-05-15] VITALS: Ht 167.6 cm; Wt 100.3 kg
[~2021-05-15 13:44] MED LIST changes: +CEFDINIR300 MG PO
[2021-05-15 14:19] LABS: BASOPHIL 0.4 % (0-2); EOSINOPHIL 1.1 % (0-7); HCT 44.4 % (42.0-52.0); HGB 14.3 g/dl (13.2-18.0); LYMPHOCYTE 10.7 % (15-48); MCH 33.7 pg (25.0-31.0); MCHC 32.2 g/dL (32.0-36.0); MCV 104.7 fL (78.0-100.0); MONOCYTE 5.6 % (0-12); MPV 8.7 fL (6.0-9.5); NEUTROPHIL 81.5 % (41-80); NRBC 0; PLT 151 K/uL (150-400); RBC 4.24 M/uL (4.70-6.00); WBC 10.4 K/uL (4.0-10.5)
[2021-05-15 14:38] LABS: ALBUMIN 2.9 g/dL (3.4-5.0); BILIRUBIN - TOTAL 0.9 mg/dL (0.2-1.0); BUN/CREAT RATIO (CALC) 15.8 RATIO; CREATININE 2.02 mg/dL (0.67-1.17); GLOBULIN (CALCULATION) 4.4 g/dL; TOTAL PROTEIN 7.3 g/dL (6.4-8.2)
[2021-05-15 14:41] LABS: LACTIC ACID 1.9 mmol/L (0.4-1.9)
[2021-05-15 15:37] LABS: BILIRUBIN NEGATIVE (NEGATIVE); BLOOD NEGATIVE Ery/uL (NEGATIVE); CLARITY CLEAR (CLEAR); COLOR YELLOW (YELLOW); GLUCOSE (U) NORMAL (NORMAL); LEUKOCYTES NEGATIVE Leu/uL (NEGATIVE); NITRITE NEGATIVE (NEGATIVE); PROTEIN NEGATIVE (NEGATIVE); SPECIFIC GRAVITY 1.015 (1.001-1.030); UROBILINOGEN 0.2 mg/dL (0.2-1.0)
[2021-05-15 15:43] LABS: SQUAMOUS EPITHELIAL CELLS RARE; URINARY RBC RARE
--- NOTE | 2021-05-15 18:50 | NUR ---
VERY POOR WITH HIS HISTORY SOME OF THE INFORMATION WAS TAKEN FROM THE LAST ADMISSION AND LAST H/P FROM BEFORE.
[2021-05-16 06:13] LABS: BASOPHIL 0.5 % (0-2); EOSINOPHIL 3.1 % (0-7); HCT 35.3 % (42.0-52.0); HGB 11.4 g/dl (13.2-18.0); LYMPHOCYTE 19.9 % (15-48); MCH 33.8 pg (25.0-31.0); MCHC 32.3 g/dL (32.0-36.0); MCV 104.7 fL (78.0-100.0); NEUTROPHIL 66.9 % (41-80); NRBC 0; PLT 129 K/uL (150-400); RBC 3.37 M/uL (4.70-6.00); RDW 18.6 % (11.5-14.0); WBC 6.4 K/uL (4.0-10.5)
[2021-05-16 06:45] LABS: BUN/CREAT RATIO (CALC) 17.2 RATIO; CREATININE 1.63 mg/dL (0.67-1.17); MAGNESIUM 1.6 mg/dL (1.8-2.4)
[2021-05-16] MEDS ORDERED: ZOLOFT100 MG PO (09:37)
[2021-05-16] MEDS ORDERED: LIPITOR40 MG PO (09:38)
[2021-05-16] MEDS ORDERED: LOPRESSOR50 MG PO (09:39)
[2021-05-16] MEDS ORDERED: K-DUR20 MEQ PO (09:40)
[2021-05-16] MEDS ORDERED: XARELTO10 MG PO (09:41)
[2021-05-16] MEDS ORDERED: METFORMIN HCL500 MG PO (09:42)
[2021-05-16] MEDS ORDERED: BUMEX1 MG PO (09:42)
--- NOTE | 2021-05-16 12:01 | NUR ---
05/16/21 [facility] was notified via [facility] of patient's admission.
--- NOTE | 2021-05-16 12:54 | NUR ---
MYRTLE GALLO AND MYSELF MET WITH PT TO DISCUSS GOING TO A CUSTODIAL FACILITY. PT. HAS REFUSED TO GO TO A FACILITY. AN REFERRAL WAS SENT TO APS REGARDING PT. HAVING MULITIPLE FALLS, BEING DEHYDRATED, HAVING SKIN ABRASIIONS AND SKIN BREAKDOWN. PT. CONTINUES TO LIVE ALONE. HE STATES HE HAS ASSISTANCE FROM CHRIS, HIS FRIEND.
--- NOTE | 2021-05-16 15:32 | NUR ---
PT. HAS A HOSPITAL BED, HOSPITAL BED AND HOME O2. PT. HAS [facility] HH. HE ALSO HAS [facility] SERVICES AND RECEIVES "MEALS ON WHEELS". HE HAS THE ASSITANCE OF HIS NEIGHBOR CHRIS AND HIS SISTER, CORRINA.
[2021-05-17 13:21] LABS: HGB 12.7 g/dl (13.2-18.0); MCHC 32.6 g/dL (32.0-36.0); MCV 104.6 fL (78.0-100.0); MPV 9.1 fL (6.0-9.5); RBC 3.73 M/uL (4.70-6.00); RDW 18.5 % (11.5-14.0); WBC 9.2 K/uL (4.0-10.5)
[2021-05-17 13:39] LABS: BUN/CREAT RATIO (CALC) 15.8 RATIO; CREATININE 1.14 mg/dL (0.67-1.17); MAGNESIUM 1.6 mg/dL (1.8-2.4); POTASSIUM 4.3 mmol/L (3.5-5.1)
[2021-05-18 05:28] LABS: BASOPHIL 0.2 % (0-2); EOSINOPHIL 2.6 % (0-7); HCT 36.4 % (42.0-52.0); HGB 11.8 g/dl (13.2-18.0); LYMPHOCYTE 22.6 % (15-48); MCH 34.2 pg (25.0-31.0); MCHC 32.4 g/dL (32.0-36.0); MCV 105.5 fL (78.0-100.0); MONOCYTE 5.6 % (0-12); MPV 8.8 fL (6.0-9.5); NEUTROPHIL 68.6 % (41-80); NRBC 0; PLT 127 K/uL (150-400); RBC 3.45 M/uL (4.70-6.00); RDW 18.5 % (11.5-14.0); WBC 9.7 K/uL (4.0-10.5)
[2021-05-18 05:46] LABS: BUN/CREAT RATIO (CALC) 13.8 RATIO; CREATININE 1.09 mg/dL (0.67-1.17); MAGNESIUM 1.8 mg/dL (1.8-2.4); POTASSIUM 4.4 mmol/L (3.5-5.1)
[2021-05-19] MEDS ORDERED: PANTOPRAZOLE SO40 MG PO (13:12)
[2021-05-19] MEDS ORDERED: SILVASORB44.4 ML TOP (13:12)
--- NOTE | 2021-05-19 14:11 | NUR ---
CALL TO DR JENNINGS'S OFFICE TO MAKE F/U APPT AND WAS TOLD BY OFFICE PERSONNEL THAT THEY ARE ASKING THAT WE TELL PATIENTS TO MAKE THEIR OWN APPT'S DUE TO THEM HAVING SO MANY MISSED APPTS. INFORMED COMPRESSOR ENGINEER AND NOTED ON DISCHARGE PAPERWORK
--- NOTE | 2021-05-19 14:14 | NUR ---
05/19/21 [facility] was notified of discharge.
== END 2021-05-19 20:30 | disposition home health service (06) | DRG 683 ==
LOC: FER 13:44 → FMS 16:37
PROVIDERS: Physician Assistant; ADMIT Internal Medicine
DX: N17.9 Acute kidney failure, unspecified (principal); L97.829 Non-pressure chronic ulcer of other part of left lower leg with unspecified severity; I48.20 Chronic atrial fibrillation, unspecified; I50.32 Chronic diastolic (congestive) heart failure; J96.11 Chronic respiratory failure with hypoxia; R62.7 Adult failure to thrive; E11.9 Type 2 diabetes mellitus without complications; I83.028 Varicose veins of left lower extremity with ulcer other part of lower leg; E86.0 Dehydration; H54.62 Unqualified visual loss, left eye, normal vision right eye; R53.1 Weakness; R00.0 Tachycardia, unspecified; I11.0 Hypertensive heart disease with heart failure; R29.6 Repeated falls; I95.9 Hypotension, unspecified; F03.90 Unspecified dementia, unspecified severity, without behavioral disturbance, psychotic disturbance, mood disturbance, and anxiety; L98.491 Non-pressure chronic ulcer of skin of other sites limited to breakdown of skin; L53.9 Erythematous condition, unspecified; I87.8 Other specified disorders of veins; E78.5 Hyperlipidemia, unspecified; I25.10 Atherosclerotic heart disease of native coronary artery without angina pectoris; J44.9 Chronic obstructive pulmonary disease, unspecified; I69.398 Other sequelae of cerebral infarction; Z83.3 Family history of diabetes mellitus; Z91.81 History of falling; Z79.899 Other long term (current) drug therapy; Z79.01 Long term (current) use of anticoagulants; Z80.8 Family history of malignant neoplasm of other organs or systems; Z82.3 Family history of stroke; Z98.61 Coronary angioplasty status
CPT/HCPCS: 36415; 70450; 71045; 72125; 72170; 80048; 80053; 81001; 82550; 82962; 83605; 83735; 85025; 87449; 92523; 97162; 97167; 97530-GP; 97535; J3475; J7030; J7040

== ENCOUNTER 2021-06-02 14:28 | Inpatient (IN) | payer OTHER ==
[~2021-06-02] VITALS: Ht 167.6 cm; Wt 93.6 kg
[~2021-06-02 14:28] MED LIST changes: +PANTOPRAZOLE SO40 MG PO
[2021-06-02 16:16] LABS: BASOPHIL 0.2 % (0-2); HCT 37.5 % (42.0-52.0); HGB 11.9 g/dl (13.2-18.0); LYMPHOCYTE 20.2 % (15-48); MCH 33.5 pg (25.0-31.0); MCHC 31.7 g/dL (32.0-36.0); MCV 105.6 fL (78.0-100.0); MPV 9.3 fL (6.0-9.5); NEUTROPHIL 68.2 % (41-80); NRBC 0; PLT 261 K/uL (150-400); RBC 3.55 M/uL (4.70-6.00); WBC 8.3 K/uL (4.0-10.5)
[2021-06-02 16:30] LABS: ALBUMIN 2.4 g/dL (3.4-5.0); BUN/CREAT RATIO (CALC) 17.2 RATIO; CREATININE 1.45 mg/dL (0.67-1.17); GLOBULIN (CALCULATION) 4.7 g/dL; POTASSIUM 3.7 mmol/L (3.5-5.1); TOTAL PROTEIN 7.1 g/dL (6.4-8.2)
[2021-06-02 16:35] LABS: LACTIC ACID 1.2 mmol/L (0.4-1.9)
[2021-06-02 16:56] LABS: BILIRUBIN NEGATIVE (NEGATIVE); BLOOD 1+ Ery/uL (NEGATIVE); CLARITY CLEAR (CLEAR); COLOR YELLOW (YELLOW); GLUCOSE (U) NORMAL (NORMAL); LEUKOCYTES 1+ Leu/uL (NEGATIVE); NITRITE NEGATIVE (NEGATIVE); PROTEIN NEGATIVE (NEGATIVE); SPECIFIC GRAVITY 1.015 (1.001-1.030); UROBILINOGEN 0.2 mg/dL (0.2-1.0)
--- NOTE | 2021-06-02 22:34 | NUR ---
ARRIVED TO FLOOR BY [facility]. ALERT AND ORIENTED. ABLE TO MAKE NEEDS KNOWN. NOBLE BOOTS TO BILAT LEGS LEFT IN PLACE PER TOMMY HINOJOSA CONSULTED. BED IN LOW POSITION CALL LIGHT IN REACH.
--- NOTE | 2021-06-02 23:03 | NUR ---
EXCORIATION TO COCCYX, BUTTOCKS AND SCROTUM INTO GROIN PURPLE IN COLOR. BRUISING TO BILAT ARMS AND ABDOMEN. SKIN TEAR LEFT HAND. NOBLE BOTS IN PLACE TO BILAT LOWER LEGS. OPEN AREA TO NOSE PATIENT STATES IT HAS BEEN THERE FOR MANY YEARS. ABDOMEN FOLD AND GROIN EXCORIATED AND YEASTY, CREAM APPLIED. WOUND NURSE CONSULTED.
[2021-06-02] MEDS ORDERED: BUMEX1 MG PO (23:12)
[2021-06-02] MEDS ORDERED: MAG-OXIDE 400M400 MG PO (23:13)
[2021-06-02] MEDS ORDERED: GABAPENTIN300 MG PO (23:14)
[2021-06-03 06:19] LABS: BASOPHIL 0.3 % (0-2); HCT 38.9 % (42.0-52.0); HGB 12.1 g/dl (13.2-18.0); LYMPHOCYTE 18.1 % (15-48); MCH 33.6 pg (25.0-31.0); MCHC 31.1 g/dL (32.0-36.0); MCV 108.1 fL (78.0-100.0); MONOCYTE 7.9 % (0-12); MPV 9.1 fL (6.0-9.5); NEUTROPHIL 70.4 % (41-80); NRBC 0; PLT 234 K/uL (150-400); RDW 18.9 % (11.5-14.0); WBC 6.3 K/uL (4.0-10.5)
[2021-06-03 06:45] LABS: ALBUMIN 2.3 g/dL (3.4-5.0); BILIRUBIN - TOTAL 1.1 mg/dL (0.2-1.0); BUN/CREAT RATIO (CALC) 14.4 RATIO; CREATININE 1.39 mg/dL (0.67-1.17); GLOBULIN (CALCULATION) 4.2 g/dL; POTASSIUM 2.6 mmol/L (3.5-5.1); TOTAL PROTEIN 6.5 g/dL (6.4-8.2)
[2021-06-03 13:18] LABS: BUN/CREAT RATIO (CALC) 13.2 RATIO; CREATININE 1.36 mg/dL (0.67-1.17); MAGNESIUM 1.5 mg/dL (1.8-2.4); PHOSPHORUS 3.6 mg/dL (2.6-4.7); POTASSIUM 3.3 mmol/L (3.5-5.1)
[2021-06-04 07:08] LABS: BUN/CREAT RATIO (CALC) 10.7 RATIO; CREATININE 1.31 mg/dL (0.67-1.17); PHOSPHORUS 3.4 mg/dL (2.6-4.7); POTASSIUM 3.8 mmol/L (3.5-5.1)
[2021-06-04] MEDS ORDERED: METFORMIN HCL500 M3 PO (10:08)
[2021-06-05 08:02] LABS: BUN/CREAT RATIO (CALC) 11.1 RATIO; CREATININE 1.17 mg/dL (0.67-1.17); MAGNESIUM 1.5 mg/dL (1.8-2.4); POTASSIUM 3.4 mmol/L (3.5-5.1)
[2021-06-06 06:09] LABS: BUN/CREAT RATIO (CALC) 15.4 RATIO; CREATININE 1.3 mg/dL (0.67-1.17); POTASSIUM 3.3 mmol/L (3.5-5.1)
[2021-06-06 06:29] LABS: MAGNESIUM 2.1 mg/dL (1.8-2.4)
--- NOTE | 2021-06-06 10:12 | NUR ---
06/06/21 Mr. Patricia lives alone. He has home 02, rw, 3in1. His neighbor, Lashawn Stubbs, , assist with his care. [facility] is current and has been notified of admission. - Jeffrey Perry made a referral to APS on 06/03/21. Justin Amaral, [employer] / [phone], visited with Mr. Patricia while hospitalized. Ms. Amaral reports that Ms. Stubbs has applied for guardinaship. The hearing is scheduled for 06/11/21. - Please notify [employer] at [phone] when patient is dc.
--- NOTE | 2021-06-06 20:14 | NUR ---
PATIENT FOUND ON 5LNC WITH SAT 76% WITH GOOD PLETH. PATIENT ENCOURAGED TO BREATHE THROUGH HIS NOSE BUT STILL BREATHING THROUGH MOUTH. SAT DID IMPROVE TO 86% WA AND SPEAKING TOO HIM BUT PATIENT STILL BREATHING THROUGH MOUTH WITH INCREASE TO 6L. PATIENT SWITCHED TO 40% VM AND PLACED OVER HIS MOUTH. NOSE AVOIDED TO OPEN SKIN WOUND/TEAR ON LEFT SIDE OF BRDIGE OF NOSE. PATIENT HAS RALES IN RUL. SAT IMPROVVED TO 90-91% WITH VM WEAK EFFORT WITH ISB/ACAPELLA. CHRISTIE MITCHELL
[2021-06-07 04:26] LABS: BUN/CREAT RATIO (CALC) 19.6 RATIO; CREATININE 1.38 mg/dL (0.67-1.17); MAGNESIUM 1.7 mg/dL (1.8-2.4)
[2021-06-07] MEDS ORDERED: BUMEX1 MG PO (11:24)
[2021-06-07] MEDS ORDERED: POTASSIUM CHLO10 ME1 PO (11:24)
[2021-06-07] MEDS ORDERED: PROTONIX 40MG T40 MG PO (13:37)
[2021-06-07] MEDS ORDERED: GABAPENTIN300 MG PO (13:56)
[2021-06-07] MEDS ORDERED: PANTOPRAZOLE SO40 MG PO (14:04)
--- NOTE | 2021-06-09 09:08 | NUR ---
RECEIVED AN EMAIL FROM LUCRECIA ZAPATA, TRAFFIC REPORTER WITH [employer]. SHE ADVISED THAT SHE WAS SEEKING EMERGENCY GUARDIANSHIP OF PT. THERE WAS A GUARDIANSHIP HEARING SET FOR 06/11/21, HOWEVER IT WAS MOVED TO JUNE. THAT IS WHY LUCRECIA IS SEEKING EMERGENCY GUARDIANSHIP. ADVISED CO-WORKER, MYRTLE GALLO OF THIS INFORMATION.
== END 2021-06-07 17:30 | disposition home health service (06) | DRG 291 ==
LOC: FER 14:28 → FICU 20:51 → FTCU 06-05 12:45
PROVIDERS: Emergency Medicine Emergency Medical Services; Internal Medicine; Internal Medicine Cardiovascular Disease; Nurse Practitioner; ADMIT Allergy & Immunology Allergy
DX: I13.0 Hypertensive heart and chronic kidney disease with heart failure and stage 1 through stage 4 chronic kidney disease, or unspecified chronic kidney disease (principal); I50.33 Acute on chronic diastolic (congestive) heart failure; J96.21 Acute and chronic respiratory failure with hypoxia; J96.22 Acute and chronic respiratory failure with hypercapnia; N17.9 Acute kidney failure, unspecified; J44.1 Chronic obstructive pulmonary disease with (acute) exacerbation; I48.20 Chronic atrial fibrillation, unspecified; Z20.822 Contact with and (suspected) exposure to COVID-19; N18.30 Chronic kidney disease, stage 3 unspecified; I25.10 Atherosclerotic heart disease of native coronary artery without angina pectoris; K52.9 Noninfective gastroenteritis and colitis, unspecified; S30.810A Abrasion of lower back and pelvis, initial encounter; S80.812A Abrasion, left lower leg, initial encounter; E87.6 Hypokalemia; E83.42 Hypomagnesemia; E11.22 Type 2 diabetes mellitus with diabetic chronic kidney disease; I27.20 Pulmonary hypertension, unspecified; I07.1 Rheumatic tricuspid insufficiency; E78.5 Hyperlipidemia, unspecified; G47.33 Obstructive sleep apnea (adult) (pediatric); E66.01 Morbid (severe) obesity due to excess calories; B37.2 Candidiasis of skin and nail; I87.8 Other specified disorders of veins; Z95.5 Presence of coronary angioplasty implant and graft; Z79.01 Long term (current) use of anticoagulants; Z79.899 Other long term (current) drug therapy; Z68.34 Body mass index [BMI] 34.0-34.9, adult; I69.398 Other sequelae of cerebral infarction; X58.XXXA Exposure to other specified factors, initial encounter
CPT/HCPCS: 36415; 36600; 71045; 71250; 80048; 80053; 81001; 82803; 82962; 83605; 83690; 83735; 83880; 84100; 84145; 84484; 85025; 87040; 87045; 87046; 87076; 87088; 87186; 87205; 87449; 93005; 94010; 94667; 94668; 94760; 94762; 97110; 97161; 97166; 97530-GP; 97535; J1940; J2405; J2543; J3010; J3475; J7030; J7040; U0002

== ENCOUNTER 2021-06-09 10:40 | Inpatient (IN) | payer OTHER ==
[~2021-06-09] VITALS: Ht 160 cm; Wt 90.3 kg
[~2021-06-09 10:40] MED LIST changes: +GABAPENTIN300 MG PO; +METFORMIN HCL500 M3 PO; +PROTONIX 40MG T40 MG PO
[2021-06-09 11:33] LABS: BASOPHIL 0.3 % (0-2); EOSINOPHIL 0.1 % (0-7); HGB 13.5 g/dl (13.2-18.0); LYMPHOCYTE 13.5 % (15-48); MCH 32.9 pg (25.0-31.0); MCHC 31.4 g/dL (32.0-36.0); MCV 104.9 fL (78.0-100.0); MONOCYTE 6.3 % (0-12); MPV 9.5 fL (6.0-9.5); NEUTROPHIL 79.3 % (41-80); NRBC 0; PLT 206 K/uL (150-400); RDW 17.9 % (11.5-14.0); WBC 10.3 K/uL (4.0-10.5)
[2021-06-09 11:37] LABS: INR 1.49 (0.9-1.2); PROTHROMBIN TIME 17.3 SECONDS (11.8-13.4); PTT 42.8 SECONDS (24.4-34.7)
[2021-06-09 11:40] LABS: LACTIC ACID 2.1 mmol/L (0.4-1.9)
[2021-06-09 11:42] LABS: ALBUMIN 2.9 g/dL (3.4-5.0); BILIRUBIN - TOTAL 1.8 mg/dL (0.2-1.0); BUN/CREAT RATIO (CALC) 18.6 RATIO; CREATININE 2.37 mg/dL (0.67-1.17); GLOBULIN (CALCULATION) 4.4 g/dL; POTASSIUM 3.3 mmol/L (3.5-5.1); TOTAL PROTEIN 7.3 g/dL (6.4-8.2)
--- NOTE | 2021-06-09 14:35 | NUR ---
06/09/21 Mr. Patircia was admitted from home. His neighbor, Lashawn Dixon, is applying for guardianship. The court hearing has been post poned until June. Carleehuyen Amaral, [facility], , reports plans for Ms. dixon to apply for emergency guardianship. Ms. Amaral has requested a statement from the physician explaining the need for emrgency guardianship. The request will be discussed with Dr. Price.
--- NOTE | 2021-06-09 16:31 | NUR ---
NOTIFIED DR HILL OF [place] 5.898, NO NEW ORDERS AT THIS TIME
[2021-06-10 04:42] LABS: BASOPHIL 0.4 % (0-2); EOSINOPHIL 1.7 % (0-7); HCT 38.6 % (42.0-52.0); HGB 12.2 g/dl (13.2-18.0); LYMPHOCYTE 20.9 % (15-48); MCH 32.9 pg (25.0-31.0); MCHC 31.6 g/dL (32.0-36.0); MONOCYTE 8.5 % (0-12); MPV 9.7 fL (6.0-9.5); NRBC 0; PLT 192 K/uL (150-400); RBC 3.71 M/uL (4.70-6.00); RDW 17.6 % (11.5-14.0); WBC 9.3 K/uL (4.0-10.5)
[2021-06-10 05:14] LABS: BUN/CREAT RATIO (CALC) 20.3 RATIO; CREATININE 2.66 mg/dL (0.67-1.17); POTASSIUM 3.3 mmol/L (3.5-5.1)
[2021-06-11 05:00] LABS: BUN/CREAT RATIO (CALC) 26.5 RATIO; CREATININE 1.85 mg/dL (0.67-1.17); POTASSIUM 3.1 mmol/L (3.5-5.1)
[2021-06-11 05:10] LABS: BASOPHIL 0.3 % (0-2); EOSINOPHIL 1.9 % (0-7); HCT 37.5 % (42.0-52.0); HGB 11.8 g/dl (13.2-18.0); MCH 32.8 pg (25.0-31.0); MCHC 31.5 g/dL (32.0-36.0); MCV 104.2 fL (78.0-100.0); MONOCYTE 7.9 % (0-12); MPV 9.8 fL (6.0-9.5); NEUTROPHIL 72.5 % (41-80); NRBC 0; PLT 189 K/uL (150-400); RDW 17.2 % (11.5-14.0)
--- NOTE | 2021-06-11 16:07 | NUR ---
06/11/21 A message was left for Carlee Amaral, JA[employer]MINE, r/t status of emergency guardianship. - Mr. Patricia continues to refuse NH placement in spite of being informed of Lashawn Stubbs' being in support of NH placement.
--- NOTE | 2021-06-12 02:08 | NUR ---
Saline lock found lying in the bed. lying in the bed, patient pulled out saline lock, cath tip intact.
[2021-06-12 06:05] LABS: BASOPHIL 0.5 % (0-2); EOSINOPHIL 2.2 % (0-7); HCT 43.5 % (42.0-52.0); HGB 13.9 g/dl (13.2-18.0); LYMPHOCYTE 17.7 % (15-48); MCH 33.6 pg (25.0-31.0); MCV 105.1 fL (78.0-100.0); MONOCYTE 7.4 % (0-12); MPV 10.4 fL (6.0-9.5); NEUTROPHIL 71.8 % (41-80); NRBC 0; PLT 190 K/uL (150-400); RBC 4.14 M/uL (4.70-6.00); RDW 17.4 % (11.5-14.0); WBC 7.7 K/uL (4.0-10.5)
[2021-06-12 06:09] LABS: BUN/CREAT RATIO (CALC) 28.7 RATIO; CREATININE 1.43 mg/dL (0.67-1.17); POTASSIUM 3.3 mmol/L (3.5-5.1)
--- NOTE | 2021-06-12 17:51 | NUR ---
06/12/21/ JAZZMINE Shelton, reports the emergency guardianship hearing to be scheduled for 06/16/21.
[2021-06-13 06:23] LABS: BASOPHIL 0.6 % (0-2); EOSINOPHIL 2.6 % (0-7); HGB 13.5 g/dl (13.2-18.0); LYMPHOCYTE 17.9 % (15-48); MCH 33.3 pg (25.0-31.0); MCHC 31.4 g/dL (32.0-36.0); MCV 106.2 fL (78.0-100.0); MONOCYTE 7.9 % (0-12); MPV 9.4 fL (6.0-9.5); NEUTROPHIL 70.4 % (41-80); NRBC 0; PLT 231 K/uL (150-400); RBC 4.05 M/uL (4.70-6.00); RDW 17.2 % (11.5-14.0); WBC 8.8 K/uL (4.0-10.5)
[2021-06-13 06:38] LABS: BUN/CREAT RATIO (CALC) 28.5 RATIO; CREATININE 1.3 mg/dL (0.67-1.17); POTASSIUM 3.1 mmol/L (3.5-5.1)
[2021-06-14 06:12] LABS: BILIRUBIN NEGATIVE (NEGATIVE); BLOOD NEGATIVE Ery/uL (NEGATIVE); CLARITY CLEAR (CLEAR); COLOR YELLOW (YELLOW); GLUCOSE (U) NORMAL (NORMAL); LEUKOCYTES NEGATIVE Leu/uL (NEGATIVE); NITRITE NEGATIVE (NEGATIVE); PROTEIN NEGATIVE (NEGATIVE); UROBILINOGEN 0.2 mg/dL (0.2-1.0); pH 6.5 (5.0-9.0)
[2021-06-14 06:12] LABS: BASOPHIL 0.6 % (0-2); EOSINOPHIL 2.6 % (0-7); HCT 39.8 % (42.0-52.0); HGB 12.8 g/dl (13.2-18.0); LYMPHOCYTE 20.7 % (15-48); MCH 33.4 pg (25.0-31.0); MCHC 32.2 g/dL (32.0-36.0); MCV 103.9 fL (78.0-100.0); MONOCYTE 8.2 % (0-12); MPV 9.3 fL (6.0-9.5); NEUTROPHIL 67.5 % (41-80); NRBC 0; PLT 236 K/uL (150-400); RBC 3.83 M/uL (4.70-6.00); RDW 17.1 % (11.5-14.0); WBC 9.6 K/uL (4.0-10.5)
[2021-06-14 06:33] LABS: CREATININE 1.37 mg/dL (0.67-1.17); POTASSIUM 3.2 mmol/L (3.5-5.1)
[2021-06-15 06:37] LABS: BASOPHIL 0.7 % (0-2); EOSINOPHIL 2.4 % (0-7); HCT 40.6 % (42.0-52.0); LYMPHOCYTE 26.1 % (15-48); MCH 33.2 pg (25.0-31.0); MCV 103.8 fL (78.0-100.0); MONOCYTE 6.2 % (0-12); MPV 9.4 fL (6.0-9.5); NEUTROPHIL 64.1 % (41-80); NRBC 0; PLT 239 K/uL (150-400); RBC 3.91 M/uL (4.70-6.00); RDW 16.9 % (11.5-14.0); WBC 10.4 K/uL (4.0-10.5)
[2021-06-15 06:49] LABS: BUN/CREAT RATIO (CALC) 23.7 RATIO; CREATININE 1.56 mg/dL (0.67-1.17); POTASSIUM 3.4 mmol/L (3.5-5.1)
--- NOTE | 2021-06-16 01:56 | NUR ---
PT CALLED OUT NEEDING TO VOID, BEDSIDE RN ASSISTED PT WITH URINAL AND PT GRIMACED WHILE VOIDING. 25 CC VOIDED, URINE IS RED IN COLOR. JOHN MCCANN APRN NOTIFIED AND UA ORDERED.
[2021-06-16 03:48] LABS: BILIRUBIN NEGATIVE (NEGATIVE); BLOOD 3+ Ery/uL (NEGATIVE); CLARITY HAZY (CLEAR); COLOR RED (YELLOW); GLUCOSE (U) NORMAL (NORMAL); LEUKOCYTES TRACE Leu/uL (NEGATIVE); NITRITE NEGATIVE (NEGATIVE); PROTEIN TRACE (LOW) mg/dL (NEGATIVE); SPECIFIC GRAVITY 1.015 (1.001-1.030)
[2021-06-16 03:56] LABS: SQUAMOUS EPITHELIAL CELLS RARE; URINARY RBC TNTC; URINARY WBC RARE
[2021-06-16 06:16] LABS: BASOPHIL 0.4 % (0-2); EOSINOPHIL 2.4 % (0-7); HCT 39.3 % (42.0-52.0); HGB 12.7 g/dl (13.2-18.0); LYMPHOCYTE 26.1 % (15-48); MCH 33.6 pg (25.0-31.0); MCHC 32.3 g/dL (32.0-36.0); MONOCYTE 7.5 % (0-12); NEUTROPHIL 63.2 % (41-80); NRBC 0; PLT 218 K/uL (150-400); RBC 3.78 M/uL (4.70-6.00); RDW 16.9 % (11.5-14.0); WBC 9.3 K/uL (4.0-10.5)
[2021-06-16 06:35] LABS: BUN/CREAT RATIO (CALC) 23.4 RATIO; CREATININE 1.71 mg/dL (0.67-1.17); POTASSIUM 3.8 mmol/L (3.5-5.1)
--- NOTE | 2021-06-16 10:25 | NUR ---
06/16/21 Santos Stevens served Mr. Patricia on 06/13/21 re: Guardianship hearing scheduled for 06/16/21.
[2021-06-17 07:08] LABS: BASOPHIL 0.5 % (0-2); EOSINOPHIL 3.4 % (0-7); HCT 39.9 % (42.0-52.0); HGB 12.8 g/dl (13.2-18.0); LYMPHOCYTE 22.3 % (15-48); MCH 33.3 pg (25.0-31.0); MCHC 32.1 g/dL (32.0-36.0); MCV 103.9 fL (78.0-100.0); MONOCYTE 7.3 % (0-12); MPV 9.5 fL (6.0-9.5); NRBC 0; PLT 233 K/uL (150-400); RBC 3.84 M/uL (4.70-6.00); RDW 16.8 % (11.5-14.0)
[2021-06-17 07:13] LABS: BUN/CREAT RATIO (CALC) 22.4 RATIO; CREATININE 1.47 mg/dL (0.67-1.17); MAGNESIUM 1.7 mg/dL (1.8-2.4); POTASSIUM 3.6 mmol/L (3.5-5.1)
--- NOTE | 2021-06-17 15:44 | NUR ---
06/17/21 Lashawn Stubbs, presented guardianship documents. She has chosen NH placement. Referrals have been made to [facility] per the guardianship's choice.
--- NOTE | 2021-06-17 15:59 | NUR ---
06/17/21 [facility] has accepted patient pending insurance approval.
--- NOTE | 2021-06-19 23:38 | NUR ---
PT OXYGEN SATURATION STAYING IN 80'S INCREASED OXYGEN TO 6 LITERS VIA NASAL CANULA, WITH NO INCREASE IN SATURATION. Yobani MACK INFORMED. ABG ORDERED, AWAITING FURTHER ORDERS.
--- NOTE | 2021-06-20 12:16 | NUR ---
06/20/21 Darrick at [facility] reports insurance to be reviewing. Updated therapy notes were faxed per Darrick's request.
[2021-06-20] MEDS ORDERED: MICONAZORB AF71 GM TOP (16:16)
[2021-06-20] MEDS ORDERED: ELIQUIS2.5 MG PO (16:16)
[2021-06-20] MEDS ORDERED: ASPIRIN81 MG PO (16:16)
--- NOTE | 2021-06-20 16:34 | NUR ---
06/20/21 [facility] has received insurance authorization for admission today. Dr. Benitez reports patient to have had a decline and discharge is delayed. [facility] will accept patient over the weekend if he is ready. Call report to: [phone] and fax DS to: [phone]. - Report given to MS Katrin RN - Pt will require EMS for transport. - Lashawn Stubbs, guardian has been informed of [facility] accepting patient.
[2021-06-20 17:25] LABS: BASOPHIL 0.4 % (0-2); EOSINOPHIL 1.4 % (0-7); HCT 41.7 % (42.0-52.0); HGB 13.2 g/dl (13.2-18.0); MCH 33.3 pg (25.0-31.0); MCHC 31.7 g/dL (32.0-36.0); MCV 105.3 fL (78.0-100.0); MONOCYTE 6.3 % (0-12); MPV 9.1 fL (6.0-9.5); NEUTROPHIL 77.5 % (41-80); NRBC 0; PLT 241 K/uL (150-400); RBC 3.96 M/uL (4.70-6.00); RDW 16.7 % (11.5-14.0)
[2021-06-20 17:42] LABS: BUN/CREAT RATIO (CALC) 26.2 RATIO; CREATININE 1.3 mg/dL (0.67-1.17); MAGNESIUM 1.9 mg/dL (1.8-2.4); POTASSIUM 3.2 mmol/L (3.5-5.1)
[2021-06-22 06:24] LABS: BASOPHIL 0.6 % (0-2); HCT 41.4 % (42.0-52.0); HGB 13.6 g/dl (13.2-18.0); LYMPHOCYTE 18.9 % (15-48); MCH 33.5 pg (25.0-31.0); MCHC 32.9 g/dL (32.0-36.0); MONOCYTE 8.7 % (0-12); MPV 9.2 fL (6.0-9.5); NEUTROPHIL 68.5 % (41-80); NRBC 0; PLT 264 K/uL (150-400); RBC 4.06 M/uL (4.70-6.00); RDW 16.2 % (11.5-14.0)
[2021-06-22 06:39] LABS: BUN/CREAT RATIO (CALC) 21.7 RATIO; CREATININE 1.2 mg/dL (0.67-1.17); POTASSIUM 2.9 mmol/L (3.5-5.1)
[2021-06-23 06:21] LABS: BUN/CREAT RATIO (CALC) 24.6 RATIO; CREATININE 1.34 mg/dL (0.67-1.17); POTASSIUM 3.6 mmol/L (3.5-5.1)
--- NOTE | 2021-06-23 10:38 | NUR ---
06/23/21 [facility] will require the 02 L to be 4 - 5 before they can take him on an oximizer.
[2021-06-24 04:10] LABS: BASOPHIL 0.4 % (0-2); EOSINOPHIL 2.9 % (0-7); HCT 42.8 % (42.0-52.0); LYMPHOCYTE 25.4 % (15-48); MCH 33.4 pg (25.0-31.0); MCHC 32.7 g/dL (32.0-36.0); MCV 102.1 fL (78.0-100.0); MONOCYTE 7.4 % (0-12); MPV 9.2 fL (6.0-9.5); NEUTROPHIL 63.5 % (41-80); NRBC 0; PLT 285 K/uL (150-400); RBC 4.19 M/uL (4.70-6.00); RDW 16.3 % (11.5-14.0)
[2021-06-24 04:28] LABS: BUN/CREAT RATIO (CALC) 26.9 RATIO; CREATININE 1.45 mg/dL (0.67-1.17); MAGNESIUM 1.7 mg/dL (1.8-2.4); POTASSIUM 3.1 mmol/L (3.5-5.1)
--- NOTE | 2021-06-24 13:17 | NUR ---
06/24/21 [facility] and [facility] will accept patient today. He is now on 4.5 L of 02 with oximizer. - A report was given to Dr. Benitez and Katrin MS RN. Pt will require EMS for transport. A voicemail was left for jonh Hewittan.
[2021-06-24] MEDS ORDERED: K-DUR20 MEQ PO (15:09)
[2021-06-24] MEDS ORDERED: METOLAZONE2.5 MG PO (15:09)
== END 2021-06-24 19:00 | DRG 280 ==
LOC: FER 10:40 → FTCU 12:38 → FMS 12:38 → FTCU 12:38 → FMS 06-17 18:11
PROVIDERS: Emergency Medicine; Internal Medicine; Nurse Practitioner; ADMIT Internal Medicine
DX: I21.4 Non-ST elevation (NSTEMI) myocardial infarction (principal); J96.21 Acute and chronic respiratory failure with hypoxia; J96.22 Acute and chronic respiratory failure with hypercapnia; I50.33 Acute on chronic diastolic (congestive) heart failure; N17.9 Acute kidney failure, unspecified; I48.20 Chronic atrial fibrillation, unspecified; I13.0 Hypertensive heart and chronic kidney disease with heart failure and stage 1 through stage 4 chronic kidney disease, or unspecified chronic kidney disease; Z66 Do not resuscitate; N18.30 Chronic kidney disease, stage 3 unspecified; Z20.822 Contact with and (suspected) exposure to COVID-19; E87.6 Hypokalemia; I27.20 Pulmonary hypertension, unspecified; R62.7 Adult failure to thrive; E11.22 Type 2 diabetes mellitus with diabetic chronic kidney disease; J44.9 Chronic obstructive pulmonary disease, unspecified; L89.892 Pressure ulcer of other site, stage 2; E86.0 Dehydration; I87.8 Other specified disorders of veins; E78.00 Pure hypercholesterolemia, unspecified; F41.9 Anxiety disorder, unspecified; K52.9 Noninfective gastroenteritis and colitis, unspecified; G47.33 Obstructive sleep apnea (adult) (pediatric); F03.90 Unspecified dementia, unspecified severity, without behavioral disturbance, psychotic disturbance, mood disturbance, and anxiety; Z68.35 Body mass index [BMI] 35.0-35.9, adult; Z95.5 Presence of coronary angioplasty implant and graft; Z79.01 Long term (current) use of anticoagulants; Z79.899 Other long term (current) drug therapy; Z99.81 Dependence on supplemental oxygen; I69.398 Other sequelae of cerebral infarction; Z87.891 Personal history of nicotine dependence; Z82.49 Family history of ischemic heart disease and other diseases of the circulatory system; Z80.8 Family history of malignant neoplasm of other organs or systems; Z82.3 Family history of stroke; Z83.3 Family history of diabetes mellitus
CPT/HCPCS: 36415; 36600; 71045; 80048; 80053; 81001; 81003; 82553; 82803; 82962; 83605; 83735; 83880; 84484; 85025; 85610; 85730; 93005; 94640; 94760; 94762; 97110; 97116; 97161; 97530-GP; J3475; J7040; U0002

== ENCOUNTER 2021-07-07 00:24 | Day surgery (SDCO) | payer OTHER ==
[~2021-07-07] VITALS: Ht 160 cm; Wt 90.1 kg
[~2021-07-07 00:24] MED LIST changes: +ASPIRIN81 MG PO; +ELIQUIS2.5 MG PO; +METOLAZONE2.5 MG PO
[2021-07-07 00:53] LABS: BASOPHIL 0.2 % (0-2); EOSINOPHIL 0.9 % (0-7); HGB 14.4 g/dl (13.2-18.0); LYMPHOCYTE 14.4 % (15-48); MCH 33.6 pg (25.0-31.0); MCHC 33.5 g/dL (32.0-36.0); MCV 100.2 fL (78.0-100.0); MONOCYTE 7.4 % (0-12); MPV 9.5 fL (6.0-9.5); NEUTROPHIL 76.4 % (41-80); NRBC 0; PLT 304 K/uL (150-400); RBC 4.29 M/uL (4.70-6.00); RDW 15.8 % (11.5-14.0); WBC 17.6 K/uL (4.0-10.5)
[2021-07-07 01:12] LABS: ALBUMIN 3.1 g/dL (3.4-5.0); BILIRUBIN - TOTAL 0.5 mg/dL (0.2-1.0); CREATININE 1.95 mg/dL (0.67-1.17); GLOBULIN (CALCULATION) 4.6 g/dL; POTASSIUM 3.6 mmol/L (3.5-5.1); TOTAL PROTEIN 7.7 g/dL (6.4-8.2)
[2021-07-07 01:13] LABS: INR 1.53 (0.9-1.2); PROTHROMBIN TIME 17.7 SECONDS (11.8-13.4); PTT 44.3 SECONDS (24.4-34.7)
[2021-07-07 01:22] LABS: LACTIC ACID 1.6 mmol/L (0.4-1.9)
[2021-07-07 02:43] LABS: BILIRUBIN NEGATIVE (NEGATIVE); BLOOD NEGATIVE Ery/uL (NEGATIVE); CLARITY CLEAR (CLEAR); COLOR YELLOW (YELLOW); GLUCOSE (U) NORMAL (NORMAL); LEUKOCYTES NEGATIVE Leu/uL (NEGATIVE); NITRITE NEGATIVE (NEGATIVE); PROTEIN NEGATIVE (NEGATIVE); SPECIFIC GRAVITY 1.015 (1.001-1.030); UROBILINOGEN 0.2 mg/dL (0.2-1.0)
[2021-07-07 03:47] LABS: HCT 44.2 % (42.0-52.0); HGB 14.6 g/dL (13.2-18.0)
--- NOTE | 2021-07-07 09:50 | NUR ---
07/07/21 Mr. Patricia was admitted from [facility]. They will accept him back per Javier Vasquez. Ms. Vasquez will follow-up with this social worker school re: if pre-auth will be required.
[2021-07-07] MEDS ORDERED: BUMEX1 MG PO ×2 (10:05→10:12)
[2021-07-07] MEDS ORDERED: K-DUR20 MEQ PO (10:10)
[2021-07-07] MEDS ORDERED: DAILY VALUE1 EACH PO (10:13)
[2021-07-07] MEDS ORDERED: ACETAMINOPHEN500 M1 PO (10:14)
--- NOTE | 2021-07-07 18:16 | NUR ---
1700 PATIENT PULLED OUT IV THAT WAS PLACED IN HIS LEFT WRIST. NOTIFIED THAT THIS IS THE THIRD IV PATIENT HAVE PULLED OUT. NEW IV PLACED AND STATED TO LET HIM NOW IF PATIENT PULLS THIS ONE OUT
[2021-07-08 07:16] LABS: BASOPHIL 0.3 % (0-2); EOSINOPHIL 1.4 % (0-7); HCT 41.4 % (42.0-52.0); HGB 13.7 g/dl (13.2-18.0); LYMPHOCYTE 17.1 % (15-48); MCH 33.3 pg (25.0-31.0); MCHC 33.1 g/dL (32.0-36.0); MCV 100.5 fL (78.0-100.0); MONOCYTE 6.4 % (0-12); MPV 9.4 fL (6.0-9.5); NRBC 0; PLT 258 K/uL (150-400); RBC 4.12 M/uL (4.70-6.00); RDW 15.7 % (11.5-14.0); WBC 11.5 K/uL (4.0-10.5)
[2021-07-08 07:34] LABS: CREATININE 1.46 mg/dL (0.67-1.17); POTASSIUM 2.7 mmol/L (3.5-5.1)
[2021-07-09 11:44] LABS: HGB 11.6 g/dl (13.2-18.0); MCH 33.3 pg (25.0-31.0); MCHC 32.2 g/dL (32.0-36.0); MCV 103.4 fL (78.0-100.0); MPV 8.9 fL (6.0-9.5); RBC 3.48 M/uL (4.70-6.00); RDW 15.6 % (11.5-14.0); WBC 8.2 K/uL (4.0-10.5)
[2021-07-09 12:04] LABS: CREATININE 1.16 mg/dL (0.67-1.17); POTASSIUM 3.5 mmol/L (3.5-5.1)
--- NOTE | 2021-07-09 15:52 | NUR ---
07/09/21 [facility] has received insurance authorization and will accept patien today. A report was given to Dr. Godwin and MS Suresh RN.
== END 2021-07-09 17:50 ==
LOC: FER 00:24 → FMS 07:34
PROVIDERS: Emergency Medicine Emergency Medical Services; Internal Medicine; ADMIT Allergy & Immunology Allergy
DX: K92.2 Gastrointestinal hemorrhage, unspecified (principal); I48.20 Chronic atrial fibrillation, unspecified; N17.9 Acute kidney failure, unspecified; I13.0 Hypertensive heart and chronic kidney disease with heart failure and stage 1 through stage 4 chronic kidney disease, or unspecified chronic kidney disease; I50.32 Chronic diastolic (congestive) heart failure; N18.9 Chronic kidney disease, unspecified; E11.22 Type 2 diabetes mellitus with diabetic chronic kidney disease; J44.9 Chronic obstructive pulmonary disease, unspecified; K74.60 Unspecified cirrhosis of liver; I87.2 Venous insufficiency (chronic) (peripheral); I27.81 Cor pulmonale (chronic); K80.20 Calculus of gallbladder without cholecystitis without obstruction; E78.5 Hyperlipidemia, unspecified; I25.10 Atherosclerotic heart disease of native coronary artery without angina pectoris; G47.33 Obstructive sleep apnea (adult) (pediatric); E66.01 Morbid (severe) obesity due to excess calories; Z20.822 Contact with and (suspected) exposure to COVID-19; Z86.73 Personal history of transient ischemic attack (TIA), and cerebral infarction without residual deficits; Z87.891 Personal history of nicotine dependence
CPT/HCPCS: 36415; 71045; 80048; 80053; 81003; 82150; 82962; 83605; 84145; 84484; 85014; 85018; 85025; 85610; 85730; 86850; 86900; 86901; 87040; 87088; 93005; C9113; G0378; J1956; J7030; J7120; U0002